=== PATIENT | female | born 1960 | race Caucasian/White ===

== ENCOUNTER 2020-03-22 19:31 | Inpatient (IN) ==
[2020-03-22] MEDS ORDERED: ACETAMINOPHEN 500 MG TAB PO STA (19:59)
[2020-03-22] MEDS ORDERED: SODIUM CHLORIDE 0.9% 1000ML 1,000 ML IV SCH (20:00)
[2020-03-22 20:31] LABS: Basophils # (auto) 0.01 K/uL (0-0.2); Basophils % (auto) 0.1 %; Hematocrit (blood only) 46.9 % (37-47); Hemoglobin 15.8 g/dL (12.0-16.0); Immature Granulocytes # (auto) 0.04 K/uL (0.00-0.02); Immature Granulocytes % (auto) 0.5 %; Lymphocytes # (auto) 0.88 K/uL (1.2-3.4); Lymphocytes % (auto) 10.9 %; Mean Corpuscular Hemoglobin 29.8 pg (25-34); Mean Corpuscular Hgb Conc 33.7 g/dL (32-36); Mean Corpuscular Volume 88.3 fL (80-100); Mean Platelet Volume 9.6 fL (7.4-10.4); Monocytes # (auto) 0.77 K/uL (0.11-0.59); Monocytes % (auto) 9.5 %; Neutrophils # (auto) 6.41 K/uL (1.4-6.5); Platelet Count 206 K/uL (130-400); RDW Coefficient of Variation 12.8 % (11.5-14.5); RDW Standard Deviation 41.5 fL (36.4-46.3); Red Blood Count 5.31 M/uL (4.2-5.4); White Blood Count 8.11 K/uL (4.8-10.8)
[2020-03-22 20:49] LABS: Albumin Level 3.2 gm/dl (3.4-5.0); BUN Creatinine Ratio 17.5 (10-20); Calcium 8.8 mg/dl (8.5-10.1); Creatinine Clr Calc Pharmacy 87.6 ml/min; Est GFR (Non-African American) 84.5; Potassium 3.5 mmol/L (3.5-5.1)
[2020-03-22 20:52] LABS: Albumin Globulin Ratio 0.7 (0.9-2); Bilirubin,Total 0.5 mg/dl (0.2-1); Globulin 4.8 gm/dl (2.5-4.0)
--- NOTE | 2020-03-22 21:11 | XRay Report ---
XR chest 1V portable CLINICAL HISTORY: Fever. COMPARISON STUDY: No previous studies for comparison. FINDINGS: This study is mildly compromised by motion artifact. The right lung is clear. There is mild opacity within the lateral and basilar aspects of the left lung. No pneumothorax is noted. There is an equivocal small left pleural effusion. Cardiac size is normal. Mediastinal contours are unremarkab le. There is no evidence for pulmonary edema. Patient is mildly rotated. IMPRESSION: Mild nonspecific hazy opacity within the lateral and basilar aspects of the left lung. P ossible trace left pleural effusion. ACT 112: Negative or not required by law. Electronically signed by: Parker Benites M.D. 03/22/2020 9:10 PM
[2020-03-22 21:32] LABS: Influenza A virus by PCR Neg for Influ A (Neg); Influenza B virus by PCR Neg for Influ B (Neg)
[2020-03-22] MEDS ORDERED: SODIUM CHLORIDE 0.9% 1000ML 1,000 ML IV ONE (21:48)
[2020-03-22] MEDS ORDERED: cefTRIAXone SODIUM 2,000 MG/70 ML BAG IV STA (21:50)
[2020-03-22] MEDS ORDERED: XOPENEX/ATROVENT 1.25mg/0.5MG NEB COMBO NEB STA (22:43)
[2020-03-22] MEDS ORDERED: LEVALBUTEROL 1.25MG/0.5ML NEB INH STA (22:44)
[2020-03-22] MEDS ORDERED: IPRATROPIUM BROMIDE NEB SOLN 0.02% 2.5 ML VIAL INH STA (22:44)
[2020-03-22 23:05] LABS: Partial Thromboplastin Ratio 1.1; Partial Thromboplastin Time 31.5 Seconds (21.0-31.0)
[2020-03-22 23:08] LABS: D Dimer 650 ug/L FEU (0-500)
[2020-03-22 23:23] LABS: Allen Test POS (Pos); Base Excess ABG -1.7 mEq/L (-9-1.8); HCO3 ABG 22 mmol/L (19-24); Oxygen Saturation ABG 96.3 % (90-95); PCO2 ABG 33 mmHg (35-46); PO2 ABG 79 mmHg (80-95); pH ABG 7.44 (7.35-7.45)
[2020-03-22] MEDS ORDERED: DOXYCYCLINE HYCLATE 100 MG in DEXTROSE 5% 100 ML IV STA (23:24)
[2020-03-22 23:31] LABS: Magnesium 2.1 mg/dl (1.8-2.4); Thyroid Stimulating Hormone 0.864 uIu/ml (0.300-4.500)
--- NOTE | 2020-03-22 23:40 | History & Physical Report ---
Date of Service March 22, 2020 Assessment & Plan (1) Acute hypoxemic respiratory failure: Secondary to CAP atypical pneumonia given dry cough/marked constitutional symptoms symptoms Rule out COVID Sepsis secondary to above Hypertension Possibly chronic given cardiomegaly on CT imaging Hyperglycemia rule out DM Medical telemetry Supplemental O2 CS, Doxycycline Nebs RTC Isolation precautions until COVID ruled out Initiate lisinopril if with persistent BP elevation Check hemoglobin A1c DVT prophylaxis. Lovenox subcu Full code Text document was generated using [employer] voice recognition software. It may contain grammatical or spelling errors. Kindly contact undersigned for clarification of any documentation item in question. History of Present Illness Chief Complaint: Fever, cough, shortness of breath Primary Care Provider: NO PCP History obtained from patient, family, and records. No significant medical history. Patient has not been feeling well since last week. Fever at home, dry cough, pleuritic chest pain with shortness of breath associated with generalized weakness/fatigue/body aches. No recent out-of-town travel. 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 At the ER, O2 sats noted to be 80s on room air. Patient received Ceftriaxone for sepsis. Medical History as above Surgical History : Cholecystectomy, appendectomy Family History : Heart disease, diabetes, stroke Personal/Social history : Non-smoker, no EtOH intake, motel housekeeping employee Allergies Allergy/AdvReac Type Severity Reaction Status Date / Time No Known Drug Allergies Allergy Unknown Verified 03/22/20 20:37 Home Medications Home Medications Medication Instructions Recorded Confirmed Type No Known Home Medications 03/22/20 03/22/20 History Past Med/Surg History Medical History (Updated 03/23/20 @ 06:03 by Td Wyatt MD) Obesity Surgical History S/P cholecystectomy Social History Preferred Language: Lithuanian Communication Ability: Effective Vascular Neurologist Required: No Beliefs That Will Affect Care: None Current Living Situation: Spouse Other Information That Helps Us Care for You: No Feels Safe at Home: Yes Safety Concerns: Feels Safe At This Time Smoking Status: Never smoker Hx Alcohol Use: Yes Alcohol type: beer Hx Substance Use: No Review of Systems Review of Systems: As per HPI, all 10 systems reviewed, all other ROS negative Physical Exam Physical Exam: GENERAL: Comfortable, pleasant, minimal respiratory distress, obese SKIN: Normal color, warm HEENT: [place] palpebral conjunctivae, no ptosis, dry buccal mucosa, nasal cannula in place NECK : Supple, short neck, no tenderness CHEST : Decreased breath sounds, occasional expiratory wheeze, no tenderness HEART : RRR, no obvious murmurs ABDOMEN: Some distention, nontender EXTREMITIES : Minimal LE swelling, no LE tenderness, no other conspicuous deformities noted NEUROLOGIC : Coherent, no facial asymmetry, no other gross focality Results & Data Results & Data ([facility]) Vital Signs (Past 12 Hours) Vital Signs Temp Pulse Pulse Resp BP Pulse Ox 03/22/20 23:14 96 H 18 94 03/22/20 22:31 37.9 C H 98 H 23 93 03/22/20 22:30 98 H 24 143/79 H 93 03/22/20 22:01 104 H 20 93 03/22/20 22:00 102 H 24 154/74 H 94 03/22/20 21:31 105 H 25 H 93 03/22/20 21:30 105 H 24 150/70 H 93 03/22/20 21:16 38.9 C H 03/22/20 21:15 93 03/22/20 21:14 87 L 03/22/20 21:01 114 H 29 H 92 03/22/20 21:00 116 H 19 169/95 H 92 03/22/20 20:41 123 H 25 H 156/83 H 91 03/22/20 20:30 123 H 29 H 03/22/20 20:23 123 H 28 H 90 03/22/20 20:00 128 H 28 H 161/90 H 92 03/22/20 19:40 39.0 C H 137 H 24 167/103 H 91 Laboratory Results Laboratory Results WBC 8.11 K/uL (4.8-10.8) 03/22/20 20:13 RBC 5.31 M/uL (4.2-5.4) 03/22/20 20:13 Hgb 15.8 g/dL (12.0-16.0) 03/22/20 20:13 Hct 46.9 % (37-47) 03/22/20 20:13 MCV 88.3 fL (80-100) 03/22/20 20:13 MCH 29.8 pg (25-34) 03/22/20 20:13 MCHC 33.7 g/dL (32-36) 03/22/20 20:13 RDW Std Deviation 41.5 fL (36.4-46.3) 03/22/20 20:13 RDW Coeff of Mahesh 12.8 % (11.5-14.5) 03/22/20 20:13 Plt Count 206 K/uL (130-400) 03/22/20 20:13 MPV 9.6 fL (7.4-10.4) 03/22/20 20:13 Immature Gran % (Auto) 0.5 % 03/22/20 20:13 Neut % (Auto) 79.0 % 03/22/20 20:13 Lymph % (Auto) 10.9 % 03/22/20 20:13 [place] % (Auto) 9.5 % 03/22/20 20:13 Eos % (Auto) 0.0 % 03/22/20 20:13 Baso % (Auto) 0.1 % 03/22/20 20:13 Immature Gran # (Auto) 0.04 K/uL (0.00-0.02) H 03/22/20 20:13 Neut # (Auto) 6.41 K/uL (1.4-6.5) 03/22/20 20:13 Lymph # (Auto) 0.88 K/uL (1.2-3.4) L 03/22/20 20:13 [place] # (Auto) 0.77 K/uL (0.11-0.59) H 03/22/20 20:13 Eos # (Auto) 0.00 K/uL (0-0.5) 03/22/20 20:13 Baso # (Auto) 0.01 K/uL (0-0.2) 03/22/20 20:13 APTT 31.5 Seconds (21.0-31.0) H 03/22/20 20:13 PTT Ratio 1.1 03/22/20 20:13 D-Dimer 650 ug/L FEU (0-500) H* 03/22/20 20:13 ABG pH 7.44 (7.35-7.45) 03/22/20 23:11 ABG pCO2 33 mmHg (35-46) L 03/22/20 23:11 ABG pO2 79 mmHg (80-95) L 03/22/20 23:11 ABG HCO3 22 mmol/L (19-24) 03/22/20 23:11 ABG O2 Saturation 96.3 % (90-95) H 03/22/20 23:11 ABG Base Excess -1.7 mEq/L (-9-1.8) 03/22/20 23:11 Javi Test POS (Pos) 03/22/20 23:11 Barometric Pressure 734.7 mm/Hg 03/22/20 23:11 Oxygen Given 2L 03/22/20 23:11 Sodium 135 mmol/L (136-145) L 03/22/20 20:13 Potassium 3.5 mmol/L (3.5-5.1) 03/22/20 20:13 Chloride 101 mmol/L (98-107) 03/22/20 20:13 Carbon Dioxide 26 mmol/L (21-32) 03/22/20 20:13 Anion Gap 8.0 (3-11) 03/22/20 20:13 BUN 13 mg/dl (7-18) 03/22/20 20:13 Creatinine 0.77 mg/dl (0.6-1.2) 03/22/20 20:13 Est Cr Clr Drug Dosing 87.6 ml/min 03/22/20 20:13 Est GFR ( Amer) 98.0 03/22/20 20:13 Est GFR (Non-Af Amer) 84.5 03/22/20 20:13 BUN/Creatinine Ratio 17.5 (10-20) 03/22/20 20:13 Glucose 125 mg/dl (70-99) H 03/22/20 20:13 Lactate 0.8 mmol/L (0.4-2.0) 03/22/20 20:30 Calcium 8.8 mg/dl (8.5-10.1) 03/22/20 20:13 Magnesium 2.1 mg/dl (1.8-2.4) 03/22/20 20:13 Total Bilirubin 0.5 mg/dl (0.2-1) 03/22/20 20:13 AST 37 U/L (15-37) 03/22/20 20:13 ALT 45 U/L (12-78) 03/22/20 20:13 Alkaline Phosphatase 118 U/L (45-117) H 03/22/20 20:13 Total Protein 8.0 gm/dl (6.4-8.2) 03/22/20 20:13 Albumin 3.2 gm/dl (3.4-5.0) L 03/22/20 20:13 Globulin 4.8 gm/dl (2.5-4.0) H 03/22/20 20:13 Albumin/Globulin Ratio 0.7 (0.9-2) L 03/22/20 20:13 TSH 0.864 uIu/ml (0.300-4.500) 03/22/20 20:13 Influenza Type A (PCR) Neg for Influ A (Neg) 03/22/20 20:15 Influenza Type B (PCR) Neg for Influ B (Neg) 03/22/20 20:[address] chest initial read: No central pulmonary embolus. Mediastinal and hilar adenopathy. Bibasilar consolidation. Mild patchy groundglass opacities right lung. Cardiomegaly. Small hiatal hernia. EKG pending
--- NOTE | 2020-03-23 00:59 | Emergency Department Note ---
History of Present Illness General Chief complaint: Illness Stated complaint: TIRED, VOMITING Source: patient Mode of arrival: ambulatory Limitations: no limitations History of Present Illness Provider complaint: fatigue, illness Onset (ago): week(s) 1 This patient is a 59-year-old female who presents emergency department with complaints of generalized illness and fatigue. Patient states she has not felt well for the better part of a week. She has taken Tylenol periodically but not today. She complains of a diminished appetite. Patient does complain of shortness of breath and cough. Patient denies any recent travel. She denies any abdominal pain. She states she has not seen a doctor since 2007 because "if you do not go you do not know." Patient does work at the [employer] that is currently housing many homeless people secondary to the COVID pandemic and closed homeless shelters. Incidentally the patient's has checked and at the same time for evaluation. Home Medications Home Medications Medication Instructions Recorded Confirmed Type No Known Home Medications 03/22/20 03/22/20 History Allergies Allergy/AdvReac Type Severity Reaction Status Date / Time No Known Drug Allergies Allergy Unknown Verified 03/22/20 20:37 Past Med/Surg History Medical History (Updated 03/23/20 @ 01:16 by Rosalie Stafford MD) Obesity Surgical History S/P cholecystectomy Social History Feels Safe at Home: Yes Smoking Status: Never smoker Review of Systems See HPI for pertinent positives & negatives. and A total of 10 systems reviewed and were otherwise negative Physical Exam Vital Signs Vital Signs - 24 hr 03/22/20 19:40 03/22/20 20:00 03/22/20 20:23 Temperature 39.0 C H Temperature Source Oral Pulse Rate 137 H 128 H 123 H Pulse Rate [Right Radial] Pulse Rate from SpO2 Sensor 127 H 124 H Respiratory Rate 24 28 H 28 H Respiratory Effort / Characteristics Blood Pressure 167/103 H 161/90 H Blood Pressure Mean 124 111 Blood Pressure Position Sitting Pulse Oximetry 91 92 90 Oxygen Delivery Method Room Air Room Air Room Air Oxygen Flow Rate Sepsis Recent Fever Within 48 Hours Yes Sepsis New/Unexplained Change in Mental Status No Sepsis Action Taken by Nursing No Action Required 03/22/20 20:30 03/22/20 20:41 03/22/20 21:00 Temperature Temperature Source Pulse Rate 123 H 123 H 116 H Pulse Rate [Right Radial] Pulse Rate from SpO2 Sensor 122 H 116 H Respiratory Rate 29 H 25 H 19 Respiratory Effort / Characteristics Blood Pressure 156/83 H 169/95 H Blood Pressure Mean 126 119 Blood Pressure Position Pulse Oximetry 91 92 Oxygen Delivery Method Room Air Room Air Oxygen Flow Rate Sepsis Recent Fever Within 48 Hours Sepsis New/Unexplained Change in Mental Status Sepsis Action Taken by Nursing 03/22/20 21:01 03/22/20 21:14 03/22/20 21:15 Temperature Temperature Source Pulse Rate 114 H Pulse Rate [Right Radial] Pulse Rate from SpO2 Sensor 114 H Respiratory Rate 29 H Respiratory Effort / Characteristics Blood Pressure Blood Pressure Mean Blood Pressure Position Pulse Oximetry 92 87 L 93 Oxygen Delivery Method Room Air Nasal Cannula Oxygen Flow Rate 2 Sepsis Recent Fever Within 48 Hours Sepsis New/Unexplained Change in Mental Status Sepsis Action Taken by Nursing 03/22/20 21:16 03/22/20 21:30 03/22/20 21:31 Temperature 38.9 C H Temperature Source Oral Pulse Rate 105 H 105 H Pulse Rate [Right Radial] Pulse Rate from SpO2 Sensor 106 H 105 H Respiratory Rate 24 25 H Respiratory Effort / Characteristics Blood Pressure 150/70 H Blood Pressure Mean 96 Blood Pressure Position Pulse Oximetry 93 93 Oxygen Delivery Method Oxygen Flow Rate Sepsis Recent Fever Within 48 Hours Sepsis New/Unexplained Change in Mental Status Sepsis Action Taken by Nursing 03/22/20 22:00 03/22/20 22:01 03/22/20 22:30 Temperature Temperature Source Pulse Rate 102 H 104 H 98 H Pulse Rate [Right Radial] Pulse Rate from SpO2 Sensor 103 H 104 H 99 H Respiratory Rate 24 20 24 Respiratory Effort / Characteristics Blood Pressure 154/74 H 143/79 H Blood Pressure Mean 106 109 Blood Pressure Position Pulse Oximetry 94 93 93 Oxygen Delivery Method Oxygen Flow Rate Sepsis Recent Fever Within 48 Hours Sepsis New/Unexplained Change in Mental Status Sepsis Action Taken by Nursing 03/22/20 22:31 03/22/20 23:00 03/22/20 23:01 Temperature 37.9 C H Temperature Source Pulse Rate 98 H 91 H 93 H Pulse Rate [Right Radial] Pulse Rate from SpO2 Sensor 98 H 91 H 93 H Respiratory Rate 23 22 22 Respiratory Effort / Characteristics Blood Pressure 120/76 Blood Pressure Mean 90 Blood Pressure Position Pulse Oximetry 93 94 94 Oxygen Delivery Method Nasal Cannula Oxygen Flow Rate 2 Sepsis Recent Fever Within 48 Hours Sepsis New/Unexplained Change in Mental Status Sepsis Action Taken by Nursing 03/22/20 23:14 03/22/20 23:30 03/22/20 23:31 Temperature Temperature Source Pulse Rate 94 H 94 H Pulse Rate [Right Radial] 96 H Pulse Rate from SpO2 Sensor 94 H 94 H Respiratory Rate 18 22 22 Respiratory Effort / Characteristics Non-Labored Spontaneous Blood Pressure 138/82 Blood Pressure Mean 104 Blood Pressure Position Pulse Oximetry 94 92 93 Oxygen Delivery Method Nasal Cannula Oxygen Flow Rate 2 Sepsis Recent Fever Within 48 Hours Sepsis New/Unexplained Change in Mental Status Sepsis Action Taken by Nursing 03/23/20 00:00 03/23/20 00:01 03/23/20 00:30 Temperature Temperature Source Pulse Rate 90 96 H 88 Pulse Rate [Right Radial] Pulse Rate from SpO2 Sensor 91 H 96 H 89 Respiratory Rate 21 23 22 Respiratory Effort / Characteristics Blood Pressure 140/80 131/79 Blood Pressure Mean 95 86 Blood Pressure Position Pulse Oximetry 93 93 93 Oxygen Delivery Method Nasal Cannula Oxygen Flow Rate 3 Sepsis Recent Fever Within 48 Hours Sepsis New/Unexplained Change in Mental Status Sepsis Action Taken by Nursing 03/23/20 00:31 03/23/20 00:52 Temperature Temperature Source Pulse Rate 90 87 Pulse Rate [Right Radial] Pulse Rate from SpO2 Sensor 90 Respiratory Rate 18 18 Respiratory Effort / Characteristics Blood Pressure 131/79 Blood Pressure Mean Blood Pressure Position Pulse Oximetry 93 93 Oxygen Delivery Method Nasal Cannula Oxygen Flow Rate 2 Sepsis Recent Fever Within 48 Hours Sepsis New/Unexplained Change in Mental Status Sepsis Action Taken by Nursing Vital signs reviewed. Febrile and tachycardic. General: Ill-appearing 59 yo female, in no significant distress. HEENT: No scleral icterus, PERRLA, neck supple. Atraumatic. Cardiovascular: Tachycardic and regular, no extra sounds Pulmonary: Crackles to the bases bilaterally, normal work of breathing. Abdomen: Soft, nontender, nondistended, positive bowel sounds. Musculoskeletal: Atraumatic, no peripheral edema. Neurologic: Patient awake alert and oriented x 3 Skin: Warm, dry, no rash Course Administered Medications Doxycycline Hyclate 100 mg/ (Dextrose) 110 mls @ 50 mls/hr IV NOW STA Stop: 03/23/20 01:35 Last Admin: 03/23/20 00:05 Dose: 50 mls/hr Documented by: [id number] Discontinued Medications Acetaminophen (Tylenol) 1,000 mg PO ONE STA Stop: 03/22/20 20:00 Last Admin: 03/22/20 20:38 Dose: 1,000 mg Documented by: [id number] Sodium Chloride (Nss 1000ml) 1,000 mls @ 999 mls/hr IV .Q1H1M BENNIE Stop: 03/22/20 21:00 Last Infusion: 03/22/20 22:33 Dose: 0 mls/hr Documented by: [id number] Admin: 03/22/20 20:35 Dose: 999 mls/hr Documented by: [id number] Sodium Chloride (Nss 1000ml) 1,000 mls @ 999 mls/hr IV .Q1H1M ONE Stop: 03/22/20 22:48 Last Infusion: 03/22/20 23:47 Dose: 0 mls/hr Documented by: [id number] Admin: 03/22/20 22:30 Dose: 999 mls/hr Documented by: [id number] Ceftriaxone Sodium (Rocephin) 2,000 mg in 70 mls @ 140 mls/hr IV NOW STA Stop: 03/22/20 22:19 Last Infusion: 03/22/20 23:47 Dose: 0 mls/hr Documented by: [id number] Admin: 03/22/20 22:30 Dose: 140 mls/hr Documented by: [id number] Ipratropium [place] (Atrovent 0.02% 0.5mg/2.5ml) 0.5 mg INH NOW STA Stop: 03/22/20 22:45 Last Admin: 03/22/20 23:12 Dose: 0.5 mg Documented by: [id number] Levalbuterol HCl (Xopenex 1.25mg/0.5ml Neb) 1.25 mg INH NOW STA Stop: 03/22/20 22:45 Last Admin: 03/22/20 23:12 Dose: 1.25 mg Documented by: [id number] Critical Care Time Critical Care Time: Yes I have personally spent greater than 40 minutes of critical care time in the direct management of this patient. This includes bedside care, interpretation of diagnostic studies, and testing, discussion with consultants, patient, and family members, and other required patient management activities. This 40 minutes is in excess of all separately billable procedures. Medical Decision Making Differential Diagnosis Differential diagnosis: Etiologies such as viral syndrome, otitis, pharyngitis, pneumonia, influenza, meningitis, urinary tract infection, septic arthritis, soft tissue infectious process, intra-abdominal process, sepsis, bacteremia, as well as others were entertained. Medical Records Attestation: I reviewed the patient's medical records. Home Medications Current Medication List: was personally reviewed by me (none) Laboratory Data Attestation: I reviewed the patient's lab results. Result diagrams: 03/22/20 20:13 03/22/20 20:13 Lab Results 03/22/20 03/22/20 03/22/20 Range/Units 20:13 20:13 20:13 WBC 8.11 (4.8-10.8) K/uL RBC 5.31 (4.2-5.4) M/uL Hgb 15.8 (12.0-16.0) g/dL Hct 46.9 (37-47) % MCV 88.3 (80-100) fL MCH 29.8 (25-34) pg MCHC 33.7 (32-36) g/dL RDW Std Deviation 41.5 (36.4-46.3) fL RDW Coeff of Mahesh 12.8 (11.5-14.5) % Plt Count 206 (130-400) K/uL MPV 9.6 (7.4-10.4) fL Immature Gran % (Auto) 0.5 % Neut % (Auto) 79.0 % Lymph % (Auto) 10.9 % Gilchrist % (Auto) 9.5 % Eos % (Auto) 0.0 % Baso % (Auto) 0.1 % Immature Gran # (Auto) 0.04 H (0.00-0.02) K/uL Neut # (Auto) 6.41 (1.4-6.5) K/uL Lymph # (Auto) 0.88 L (1.2-3.4) K/uL Gilchrist # (Auto) 0.77 H (0.11-0.59) K/uL Eos # (Auto) 0.00 (0-0.5) K/uL Baso # (Auto) 0.01 (0-0.2) K/uL APTT 31.5 H (21.0-31.0) Seconds PTT Ratio 1.1 D-Dimer 650 H* (0-500) ug/L FEU ABG pH (7.35-7.45) ABG pCO2 (35-46) mmHg ABG pO2 (80-95) mmHg ABG HCO3 (19-24) mmol/L ABG O2 Saturation (90-95) % ABG Base Excess (-9-1.8) mEq/L Javi Test (Pos) Barometric Pressure mm/Hg Oxygen Given Sodium 135 L (136-145) mmol/L Potassium 3.5 (3.5-5.1) mmol/L Chloride 101 (98-107) mmol/L Carbon Dioxide 26 (21-32) mmol/L Anion Gap 8.0 (3-11) BUN 13 (7-18) mg/dl Creatinine 0.77 (0.6-1.2) mg/dl Est Cr Clr Drug Dosing 87.6 ml/min Est GFR ( Amer) 98.0 Est GFR (Non-Af Amer) 84.5 BUN/Creatinine Ratio 17.5 (10-20) Glucose 125 H (70-99) mg/dl Lactate (0.4-2.0) mmol/L Calcium 8.8 (8.5-10.1) mg/dl Magnesium 2.1 (1.8-2.4) mg/dl Total Bilirubin 0.5 (0.2-1) mg/dl AST 37 (15-37) U/L ALT 45 (12-78) U/L Alkaline Phosphatase 118 H (45-117) U/L Total Protein 8.0 (6.4-8.2) gm/dl Albumin 3.2 L (3.4-5.0) gm/dl Globulin 4.8 H (2.5-4.0) gm/dl Albumin/Globulin Ratio 0.7 L (0.9-2) TSH 0.864 (0.300-4.500) uIu/ml Influenza Type A (PCR) (Neg) Influenza Type B (PCR) (Neg) SARS-CoV-2 RNA (RT-PCR) 03/22/20 03/22/20 03/22/20 Range/Units 20:15 20:15 20:30 WBC (4.8-10.8) K/uL RBC (4.2-5.4) M/uL Hgb (12.0-16.0) g/dL Hct (37-47) % MCV (80-100) fL MCH (25-34) pg MCHC (32-36) g/dL RDW Std Deviation (36.4-46.3) fL RDW Coeff of Mahesh (11.5-14.5) % Plt Count (130-400) K/uL MPV (7.4-10.4) fL Immature Gran % (Auto) % Neut % (Auto) % Lymph % (Auto) % Gilchrist % (Auto) % Eos % (Auto) % Baso % (Auto) % Immature Gran # (Auto) (0.00-0.02) K/uL Neut # (Auto) (1.4-6.5) K/uL Lymph # (Auto) (1.2-3.4) K/uL Gilchrist # (Auto) (0.11-0.59) K/uL Eos # (Auto) (0-0.5) K/uL Baso # (Auto) (0-0.2) K/uL APTT (21.0-31.0) Seconds PTT Ratio D-Dimer (0-500) ug/L FEU ABG pH (7.35-7.45) ABG pCO2 (35-46) mmHg ABG pO2 (80-95) mmHg ABG HCO3 (19-24) mmol/L ABG O2 Saturation (90-95) % ABG Base Excess (-9-1.8) mEq/L Javi Test (Pos) Barometric Pressure mm/Hg Oxygen Given Sodium (136-145) mmol/L Potassium (3.5-5.1) mmol/L Chloride (98-107) mmol/L Carbon Dioxide (21-32) mmol/L Anion Gap (3-11) BUN (7-18) mg/dl Creatinine (0.6-1.2) mg/dl Est Cr Clr Drug Dosing ml/min Est GFR ( Amer) Est GFR (Non-Af Amer) BUN/Creatinine Ratio (10-20) Glucose (70-99) mg/dl Lactate 0.8 (0.4-2.0) mmol/L Calcium (8.5-10.1) mg/dl Magnesium (1.8-2.4) mg/dl Total Bilirubin (0.2-1) mg/dl AST (15-37) U/L ALT (12-78) U/L Alkaline Phosphatase (45-117) U/L Total Protein (6.4-8.2) gm/dl Albumin (3.4-5.0) gm/dl Globulin (2.5-4.0) gm/dl Albumin/Globulin Ratio (0.9-2) TSH (0.300-4.500) uIu/ml Influenza Type A (PCR) Neg for Influ A (Neg) Influenza Type B (PCR) Neg for Influ B (Neg) SARS-CoV-2 RNA (RT-PCR) Cancelled 03/22/20 Range/Units 23:11 WBC (4.8-10.8) K/uL RBC (4.2-5.4) M/uL Hgb (12.0-16.0) g/dL Hct (37-47) % MCV (80-100) fL MCH (25-34) pg MCHC (32-36) g/dL RDW Std Deviation (36.4-46.3) fL RDW Coeff of Mahesh (11.5-14.5) % Plt Count (130-400) K/uL MPV (7.4-10.4) fL Immature Gran % (Auto) % Neut % (Auto) % Lymph % (Auto) % Gilchrist % (Auto) % Eos % (Auto) % Baso % (Auto) % Immature Gran # (Auto) (0.00-0.02) K/uL Neut # (Auto) (1.4-6.5) K/uL Lymph # (Auto) (1.2-3.4) K/uL [place]christ # (Auto) (0.11-0.59) K/uL Eos # (Auto) (0-0.5) K/uL Baso # (Auto) (0-0.2) K/uL APTT (21.0-31.0) Seconds PTT Ratio D-Dimer (0-500) ug/L FEU ABG pH 7.44 (7.35-7.45) ABG pCO2 33 L (35-46) mmHg ABG pO2 79 L (80-95) mmHg ABG HCO3 22 (19-24) mmol/L ABG O2 Saturation 96.3 H (90-95) % ABG Base Excess -1.7 (-9-1.8) mEq/L Javi Test POS (Pos) Barometric Pressure 734.7 mm/Hg Oxygen Given 2L Sodium (136-145) mmol/L Potassium (3.5-5.1) mmol/L Chloride (98-107) mmol/L Carbon Dioxide (21-32) mmol/L Anion Gap (3-11) BUN (7-18) mg/dl Creatinine (0.6-1.2) mg/dl Est Cr Clr Drug Dosing ml/min Est GFR ( Amer) Est GFR (Non-Af Amer) BUN/Creatinine Ratio (10-20) Glucose (70-99) mg/dl Lactate (0.4-2.0) mmol/L Calcium (8.5-10.1) mg/dl Magnesium (1.8-2.4) mg/dl Total Bilirubin (0.2-1) mg/dl AST (15-37) U/L ALT (12-78) U/L Alkaline Phosphatase (45-117) U/L Total Protein (6.4-8.2) gm/dl Albumin (3.4-5.0) gm/dl Globulin (2.5-4.0) gm/dl Albumin/Globulin Ratio (0.9-2) TSH (0.300-4.500) uIu/ml Influenza Type A (PCR) (Neg) Influenza Type B (PCR) (Neg) SARS-CoV-2 RNA (RT-PCR) Imaging Data Radiologist's Impression: XR chest 1V portable CLINICAL HISTORY: Fever. COMPARISON STUDY: No previous studies for comparison. FINDINGS: This study is mildly compromised by motion artifact. The right lung is clear. There is mild opacity within the lateral and basilar aspects of the left lung. No pneumothorax is noted. There is an equivocal small left pleural effusion. Cardiac size is normal. Mediastinal contours are unremarkable. There is no evidence for pulmonary edema. Patient is mildly rotated. IMPRESSION: Mild nonspecific hazy opacity within the lateral and basilar aspects of the left lung. Possible trace left pleural effusion. ACT 112: Negative or not required by law. Electronically signed by: Parker Benites M.D. 03/22/2020 9:10 PM Dictated: 03/22/202105 Transcribed: 03/22/202105 ECG Data Attestation: I personally reviewed and interpreted this ECG as follows: Indication: + tachycardia Rate (beats per minute): 126 Rhythm: + sinus tachycardia and + other (left atrial enlargement) ECG Intervals/blocks: + Normal QT ECG [place]: + Normal ECG ST segments: + T-wave inversions (Inferior) ECG Findings: no PACs and no PVCs Additional Comments: An order for cardiac monitoring was placed and the patient was found to be in a sinus tachycardia at 130 bpm. Blood Pressure Blood Pressure Findings: Normal blood pressure Blood Pressure Disposition: did not require urgent referral MDM Narrative This patient was evaluated and appeared to be in no significant distress. IV access was obtained and laboratory work was drawn. Patient was placed on the clinical nurse noted to be in a sinus tachycardia. She is also noted to be febrile. Patient was given 1000 mg of p.o. Tylenol, 2 L of IV normal saline solution. Chest x-ray was performed and reveals patchy infiltrates at the lateral and basilar aspect of the left lung. Blood cultures are pending. Lactic acid is within normal limits as is the WBC. Patient was given 2000 mg of IV ceftriaxone. Patient's heart rate and fever did improve. She did become hypoxic and required nasal cannula oxygen. Patient was informed of the findings. I do recommend hospitalization due to the hypoxia, fever and pulmonary infiltrates. COVID testing is pending. Patient's case was discussed with the hospitalist service who will evaluate the patient for further management. Impression & Plan Fever, Pneumonia, Hypoxia Discharge Plan Visit Data Chief Complaint: Illness Stated Complaint: TIRED, VOMITING ED Provider: Rosalie Stafford Discharge Problem: Fever, Pneumonia, Hypoxia Discharge Instructions Interventions: ED Discharge Assessment Last Done: 03/23/20 00:52 Forms Stand Alone Forms: [employer] Prescriptions Prescriptions: No Action No Known Home Medications RF: 0 Referrals Referrals: PCP,NO [Primary Care Provider] - Discharge Problem: Fever Qualifiers: Fever type: unspecified Qualified Code(s): R50.9 - Fever, unspecified Pneumonia Qualifiers: Pneumonia type: due to unspecified organism Laterality: left Lung location: unspecified part of lung Qualified Code(s): J18.9 - Pneumonia, unspecified [facility]
[2020-03-23] MEDS ORDERED: OPTIRAY 320 125ml IV PRN (01:34)
[2020-03-23] MEDS ORDERED: PROMETHAZINE HCL 12.5 MG in SODIUM CHLORIDE 0.9% 50 ML IV PRN (01:51)
[2020-03-23] MEDS ORDERED: POTASSIUM CHLORIDE 40 MEQ in SODIUM CHLORIDE 0.9% 1000ML 1,000 ML IV ONE (01:51)
[2020-03-23] MEDS: guaiFENesin 600 MG TABCR PO SCH ×3 (03:33→20:10)
[2020-03-23 04:00] LABS: Appearance Urine Clear (Clear); Bacteria Urine Automated Negative (Negative); Bilirubin Urine Negative (Negative); Blood Urine Negative (Negative); Color Urine Dark Yellow; Epithelial Cell Urine Auto 20-30 /lpf (0-5); Glucose Urine UA Negative (Negative); Ketones Urine 1+ (Negative); Leukocyte Esterase Urine Negative (Negative); Nitrite Urine Negative (Negative); Protein Urine 1+ (Negative); RBC Urine Automated 0-4 /hpf (0-4); Specific Gravity Urine > 1.045 (1.000-1.030); Urobilinogen Urine Negative (Negative)
[2020-03-23 05:50] LABS: Estimated Average Glucose 128 mg/dl; Hemoglobin A1C 6.1 % (4.5-5.6)
[2020-03-23] MEDS ORDERED: IPRATROPIUM BROMIDE NEB SOLN 0.02% 2.5 ML VIAL INH SCH (07:00)
[2020-03-23] MEDS ORDERED: LEVALBUTEROL 1.25MG/0.5ML NEB INH SCH (07:00)
[2020-03-23] MEDS ORDERED: XOPENEX/ATROVENT 1.25mg/0.5MG NEB COMBO NEB SCH (07:00)
[2020-03-23 07:06] LABS: Basophils # (auto) 0.01 K/uL (0-0.2); Basophils % (auto) 0.2 %; Eosinophils # (auto) 0.01 K/uL (0-0.5); Eosinophils % (auto) 0.2 %; Hematocrit (blood only) 42.7 % (37-47); Hemoglobin 14.3 g/dL (12.0-16.0); Immature Granulocytes # (auto) 0.04 K/uL (0.00-0.02); Immature Granulocytes % (auto) 0.7 %; Lymphocytes % (auto) 20.2 %; Mean Corpuscular Hemoglobin 29.9 pg (25-34); Mean Corpuscular Hgb Conc 33.5 g/dL (32-36); Mean Corpuscular Volume 89.1 fL (80-100); Mean Platelet Volume 9.5 fL (7.4-10.4); Monocytes # (auto) 0.67 K/uL (0.11-0.59); Monocytes % (auto) 11.3 %; Neutrophils % (auto) 67.4 %; Platelet Count 199 K/uL (130-400); RDW Coefficient of Variation 13.1 % (11.5-14.5); Red Blood Count 4.79 M/uL (4.2-5.4); White Blood Count 5.93 K/uL (4.8-10.8)
[2020-03-23 07:10] LABS: Prothrombin Time 10.9 Seconds (9.0-12.0)
[2020-03-23 07:22] LABS: Calcium 7.8 mg/dl (8.5-10.1); Creatinine Clr Calc Pharmacy 133.7 ml/min; Est GFR (Non-African American) 105.3; Potassium 3.4 mmol/L (3.5-5.1)
--- NOTE | 2020-03-23 07:54 | CT Scan Report ---
CT angio chest PE protocol CT DOSE: 510.62 mGycm HISTORY: 59 years-old Female with PE. Acute cough with fever and shortness of breath TECHNIQUE: Multiple CTA images of the chest were obtained after the intravenous administration of 112 ml Optiray 320. Coronal and sagittal MIPS were obtained from the axial data set and were submitted for review. All measurements were obtained according to NASCET criteria. A dose lowering technique w as utilized adhering to the principles of ALARA. COMPARISON: Chest radiograph of same day FINDINGS: CTA: The heart is mildly enlarged. No pericardial effusion. No thoracic aortic aneurysm or dissection. Pat ency of the imaged great vessels. The pulmonary arterial tree is opacified to level of the proximal s ubsegmental branches. No filling defects identified to suggest pulmonary thromboembolic disease. Ther e is minimal respiratory motion artifact. CT CHEST: Unremarkable thyroid. Prominent paratracheal, AP window, subcarinal and hilar lymph nodes measure up to 9 mm, likely reactive. No pneumothorax or pleural effusion. No overt pulmonary edema. Left greater than right bibasilar predominant peripheral consolidative and groundglass opacities are present. The re are no suspicious pulmonary nodules or masses. The central airways appear patent. Mild wall thickening of the distal esophagus with tiny hiatal hernia. Possible hepatic steatosis. Sof t tissues are unremarkable. Degenerative changes of the spine and shoulders. Bones appear intact. IMPRESSION: 1. No evidence of pulmonary thromboembolic disease. 2. Left greater than right bibasilar predominant peripheral consolidative and groundglass opacities a re suggestive of infectious or inflammatory pneumonitis. This pattern of disease can be seen specific ally in cases of viral pneumonia. Close follow-up is recommended. 3. Prominent mediastinal lymph nodes, likely reactive. 4. Tiny hiatal hernia. ACT 112: Negative or not required by law. The above report was generated using voice recognition software. It may contain grammatical, syntax o r spelling errors. Electronically signed by: Vijay Costa M.D. 03/23/2020 7:53 AM
[2020-03-23] MEDS ORDERED: cefTRIAXone SODIUM 1,000 MG in DEXTROSE 5% 50 ML IV SCH (08:15)
[2020-03-23] MEDS ORDERED: IPRATROPIUM BROMIDE NEB SOLN 0.02% 2.5 ML VIAL INH PRN (08:30)
[2020-03-23] MEDS ORDERED: LEVALBUTEROL 1.25MG/0.5ML NEB INH PRN (08:30)
[2020-03-23] MEDS ORDERED: DOXYCYCLINE HYCLATE 100 MG CAP PO SCH ×2 (09:00→20:00)
[2020-03-23] MEDS ORDERED: ENOXAPARIN INJ 40 MG/0.4 ML SYR SQ SCH (09:00)
[2020-03-23 12:22] LABS: D Dimer 860 ug/L FEU (0-500)
[2020-03-23 12:39] LABS: C Reactive Protein 9.12 mg/dl (0-0.29); Ferritin 459.6 ng/ml (8-388)
--- NOTE | 2020-03-23 13:13 | Infectious Disease Consult ---
Date of Consultation March 23, 2020 Supervising Physician Co-Signing Physician Notes unable to place A/P in chart as other users are in chart as well. A/P 1. b/l PNA -suspect related to COVID-19 would continue supportive care as outlined by pulnathan, no plan for hydroxychloroquine per pulm, janae added for potential atypical coverage. continue supportive care. agree with d/c on home isolation if remains stable. History of Present Illness Attending Physician: Pedro Arvizu MD pt admitted with c/o cough, sob, fever. tmax 39, currently afebrile. wbc 5, cta in ER b/l infiltrates l>r. she had negative flu swab and + COVID testing, she is now in airborne isolation. she was started on emperic ctx, tolerating well. O2 sats down to 80's in ER, now 91% on RA. Blood cultures pending, UA negative. d dimer elevated at 650. ID consulted for + COVID test Allergies Allergy/AdvReac Type Severity Reaction Status Date / Time No Known Drug Allergies Allergy Unknown Verified 03/22/20 20:37 Home Medications Home Medications Medication Instructions Recorded Confirmed Type No Known Home Medications 03/22/20 03/22/20 History Patient History Medical History Obesity Surgical History S/P cholecystectomy Social History Preferred Language: Maori Communication Ability: Effective Accounts Receivable Specialist Required: No Beliefs That Will Affect Care: None Current Living Situation: Spouse Other Information That Helps Us Care for You: No Feels Safe at Home: Yes Safety Concerns: Feels Safe At This Time Smoking Status: Never smoker Hx Alcohol Use: Yes Alcohol type: beer Hx Substance Use: No Review of Systems Review of Systems: per h&p Results & Data ([facility]) Vital Signs (Past 12 Hours) Vital Signs Temp Pulse Pulse Resp BP BP Pulse Ox 03/23/20 12:46 100 H 03/23/20 11:24 37.5 C 96 H 20 168/105 H 91 03/23/20 11:12 37.5 C 95 H 20 153/81 H 94 03/23/20 08:38 37.1 C 87 18 151/68 H 92 03/23/20 07:11 84 17 91 03/23/20 07:00 90 03/23/20 06:43 152/89 H 03/23/20 05:54 36.9 C 85 18 151/87 H 93 03/23/20 01:46 85 03/23/20 01:43 37.2 C 90 18 157/90 H 90 PG Care Time/CCT Total # of Minutes Spent Total Time Spent with Patient: Total time spent is greater than 50% in coordination of care (as documented) at patient's floor/unit and/or counseling patient: Coding Level of Care Code 36864 Inpt Consult Level 2
--- NOTE | 2020-03-23 13:17 | Electrocardiogram Report ---
Test Reason : Blood Pressure : / mmHG Vent. Rate : 126 BPM Atrial Rate : 126 BPM P-R Int : 150 ms QRS Dur : 078 ms QT Int : 300 ms P-R-T Axes : 044 013 001 degrees QTc Int : 434 ms Sinus tachycardia Possible Left atrial enlargement Poor R wave progression, consider anterior WI vs. lead placement vs. LVH Abnormal ECG No previous ECGs available Confirmed by Carlos Clarke ([id number]) on 03/23/2020 1:17:07 PM Referred By: REFERRED SELF Confirmed By:Carlos Clarke
--- NOTE | 2020-03-23 13:26 | Pulmonary Consultation ---
Date of Consultation March 23, 2020 Assessment & Plan (1) Acute hypoxemic respiratory failure: CT chest 03/23/2020 personally reviewed patient has bilateral lower lobe consolidative changes more on the left side with minimal peripheral groundglass opacities. Insignificant mediastinal adenopathy No evidence of pulmonary embolus --Acute hypoxic respiratory failure Secondary to bilateral lower lobe infiltrates on top of Covid-19 positive Influenza negative, +ve lymphopenia Continue with O2 supplementation to keep saturation between 90 to 92%. LDH: 306, CRP: 9.12, ESR: 52, procalcitonin 0.05, ferritin 460 EKG: Normal sinus rhythm, normal axis, no ST-T wave changes. QTc 437. --Probable YURI Morbid obesity, thick neck Patient will benefit from outpatient polysomnography BiPAP nightly --Morbid obesity Plan: At the time of examination patient was saturating 91% on room air at rest. Try to keep the oxygen saturation around 90 to 92%. O2 supplementation as needed. Patient is in no acute respiratory distress. The algorithm to follow for hypoxia would be nasal cannula followed by high flow. Advised patient to sleep prone whenever she is lying down. For the dense consolidation that the patient has bilateral lower lobes although the procalcitonin is negative continue with doxycycline. I will add hydroxychloroquine to be given for 5 days. Monitor QTC. Keep potassium greater than 4, magnesium greater than 2, phosphorus greater than 3. Incentive spirometry. Patient has never been on any blood pressure pills at home. Would recommend against starting JULIA inhibitor in a patient was Covid-19 positive unless there is a documented benefit of using it. Recommend alternative medication for blood pressure management. Patient looks comfortable breathing 15 breaths/min saturating 90% on room air. If the respiratory rate and saturation stays like this for more than 24 hours, discharging patient could be thought of with self-isolation. I had a discussion with the patient regarding goals of care in case she needed intubation/ventilator and chest compressions. Patient says she would not want that even if she would not make it without those interventions. I will follow the patient peripherally. Please call for recommendation on management of the patient. Please note the above document was generated using voice recognition software. It may contain grammatical, syntax or spelling errors. (2) Pneumonia: Laterality: left Lung location: unspecified part of lung Pneumonia type: due to unspecified organism Qualified Code(s): J18.9 - Pneumonia, unspecified organism (3) Obesity: History of Present Illness Attending Physician: Pedro Arvizu MD History of Present Illness 59-year-old female with no significant past medical history presents to the hospital with complaints of not feeling well since last 7 to 10 days associated with generalized malaise, dry cough with generalized weakness. Patient denies any chest pain, no headache, no blurry vision, no nausea or vomiting. No dysuria, no diarrhea prior to presentation. No anosmia, no ageusia. Denies any sore throat. No odynophagia. No recent travel history. No weight loss, no night sweats. Patient did say that she had possible Covid-19 sick contact at the local [place] where she there were homeless people. In the ER patient saturation was found to be in the mid 80s. At the time of examination today patient saturation was 90-91% on room air at rest with respiratory rate around 15. Patient denied any discomfort. She did look scared. Allergies Allergy/AdvReac Type Severity Reaction Status Date / Time No Known Drug Allergies Allergy Unknown Verified 03/22/20 20:37 Home Medications Home Medications Medication Instructions Recorded Confirmed Type No Known Home Medications 03/22/20 03/22/20 History Patient History Medical History (Updated 03/23/20 @ 06:03 by Td Wyatt MD) Obesity Surgical History S/P cholecystectomy Social History Preferred Language: Romansh Communication Ability: Effective Insurance Salesperson Required: No Beliefs That Will Affect Care: None Current Living Situation: Spouse Other Information That Helps Us Care for You: No Feels Safe at Home: Yes Safety Concerns: Feels Safe At This Time Smoking Status: Never smoker Hx Alcohol Use: Yes Alcohol type: beer Hx Substance Use: No Review of Systems Review of Systems: All systems reviewed & are unremarkable except as noted in HPI & below Physical Exam Physical Exam: Constitutional: No acute distress HEENT: EOMI, PERRLA, poor dentition, thick neck Respiratory system: Decreased air entry bilaterally, positive bilateral lower lobe crackles, no wheeze, no rhonchi CVS: S1-S2 positive, no murmurs or gallops Abdomen: Soft, nontender, nondistended, positive bowel sounds x4, obese Extremities: +2 pulses bilaterally radialis/ dorsalis pedis, no cyanosis, no edema Neuro: Awake alert oriented x3 Psych: Normal mood and affect G/U: No Co[place]ran Skin: no rashes, warm and dry Lymphatic: no cervical or axillary lymphadenopathy Results & Data Results & [facility] ([facility]) Vital Signs (Past 12 Hours) Vital Signs Temp Pulse Pulse Resp BP BP Pulse Ox 03/23/20 12:46 100 H 03/23/20 11:24 37.5 C 96 H 20 168/105 H 91 03/23/20 11:12 37.5 C 95 H 20 153/81 H 94 03/23/20 08:38 37.1 C 87 18 151/68 H 92 03/23/20 07:11 84 17 91 03/23/20 07:00 90 03/23/20 06:43 152/89 H 03/23/20 05:54 36.9 C 85 18 151/87 H 93 03/23/20 01:46 85 03/23/20 01:43 37.2 C 90 18 157/90 H 90 03/23/20 06:31 03/23/20 06:31 PG Care Time/CCT Total # of Minutes Spent Total Time Spent with Patient: Total time spent is greater than 50% in coordination of care (as documented) at patient's floor/unit and/or counseling patient: [place] [address] Inpt Consult Level 5 Patient Type New Diagnoses Acute hypoxemic respiratory failure J96.01 Pneumonia J18.9 Laterality: left Lung location: unspecified part of lung Pneumonia type: due to unspecified organism Obesity E66.9
[2020-03-23] MEDS ORDERED: AZITHROMYCIN 250 MG TAB PO SCH (13:30)
--- NOTE | 2020-03-23 13:33 | Electrocardiogram Report ---
Test Reason : Blood Pressure : / mmHG Vent. Rate : 084 BPM Atrial Rate : 084 BPM P-R Int : 164 ms QRS Dur : 086 ms QT Int : 370 ms P-R-T Axes : 058 017 018 degrees QTc Int : 437 ms Normal sinus rhythm Normal ECG No previous ECGs available Confirmed by Carlos Clarke ([id number]) on 03/23/2020 1:33:03 PM Referred By: REFERRED SELF Confirmed By:Carlos Clarke
[2020-03-23] MEDS: HYDROXYCHLOROQUINE SULFATE 200 MG TAB PO SCH ×3 (14:49→21:18)
[2020-03-23] MEDS: AMLODIPINE BESYLATE 5 MG TAB PO SCH (14:51)
--- NOTE | 2020-03-23 16:49 | Hospitalist Progress Note ---
Date of Service delayed entry date of service as noted below March 23, 2020 Assessment & Plan (1) Acute hypoxemic respiratory failure: secondary COVID 19 Infection possible Pneumonia, Community Acquired -- requiring intermittent oxygen 2 L via nasal cannula -- CT chest: 1. No evidence of pulmonary thromboembolic disease. 2. Left greater than right bibasilar predominant peripheral consolidative and groundglass opacities are suggestive of infectious or inflammatory pneumonitis. This pattern of disease can be seen specifically in cases of viral pneumonia. Close follow-up is recommended. 3. Prominent mediastinal lymph nodes, likely reactive. 4. Tiny hiatal hernia. -- blood cultures: pending -- CRP 9.12 Ferritin 459 -- ID and Pulm consulted Hydroxychloroquine started monitor EKG daily -- on Ceftri + Doxy Sepsis secondary to above -- lactic acid 0.8 -- IV NSS discontinued Hypertension -- Possibly chronic given cardiomegaly on CT imaging -- no PCP ff up for years -- Amlodipine 5mg daily started PRN Hydralazine -- monitor and titrate meds Pre- DM -- a1c 6.1 -- diet, exercise -- needs to establish with PCP DVT prophylaxis. Lovenox subcu Full code Disposition lives at home plan of care discussed with patient in detail and at length all questions answered she is understanding, agreeable, comfortable with plan of care Admission and Anticipated Discharge Date Admission Date: March 22, 2020 Subjective ff up for COVID 19 infection seen resting in bed, sitting up i not in distress denies active shortness of breath, on room air on my exam somewhat weak, appetite fair (+) 2 loose BMs, no nausea, abdominal pain no chest pain, headache, dizziness denies other symptoms Review of Systems Review of Systems: All systems reviewed & are unremarkable except as noted in HPI & below Physical Exam Physical Exam: General- oriented x 3, not in distress, speaks in sentences with no effort or accessory muscle use Head- atraumatic Eyes- PERRL, EOMI, anicteric ENT- oropharynx clear Neck- supple, no JVD, no adenopathy, no thyromegaly; carotids +2/2, no bruits appreciated Lungs- clear breath sounds bilaterally Heart- normal rate, regular rhythm; no murmur, no gallop, no rub appreciated Abdomen- normal bowel sounds, nondistended, soft, nontender, no masses or hepatosplenomegaly Extremities- no pretibial edema, no calf tenderness; peripheral pulses intact Neuro- alert, oriented x 3; CN 2-12 grossly intact; motor 5/5 bilaterally;sensation 100% on all extremities; no other gross focal neurologic deficits Skin- warm & dry Results & Data Results & Data ([facility]) Vital Signs (Past 12 Hours) Vital Signs Temp Pulse Pulse Resp BP BP Pulse Ox 03/23/20 12:46 100 H 03/23/20 11:24 37.5 C 96 H 20 168/105 H 91 03/23/20 11:12 37.5 C 95 H 20 153/81 H 94 03/23/20 08:38 37.1 C 87 18 151/68 H 92 03/23/20 07:11 84 17 91 03/23/20 07:00 90 03/23/20 06:43 152/89 H 03/23/20 05:54 36.9 C 85 18 151/87 H 93 Laboratory Results all noted and reviewed
[2020-03-23] MEDS: ACETAMINOPHEN 325 MG TAB PO PRN ×2 (16:55→21:18)
[2020-03-23] MEDS ORDERED: AMLODIPINE BESYLATE 5 MG TAB PO ONE (17:15)
[2020-03-23] MEDS: DOXYCYCLINE HYCLATE 100 MG CAP PO SCH (20:11)
[2020-03-23] MEDS: cefTRIAXone SODIUM 2,000 MG in DEXTROSE 5% 50 ML IV SCH (20:17)
[2020-03-23] MEDS ORDERED: cefTRIAXone SODIUM 2,000 MG in DEXTROSE 5% 50 ML IV SCH (21:00)
[2020-03-23] MEDS: TRAMADOL HCL 50 MG TABLET PO PRN (23:53)
[2020-03-24 05:26] LABS: Basophils # (auto) 0.01 K/uL (0-0.2); Basophils % (auto) 0.2 %; Eosinophils # (auto) 0.01 K/uL (0-0.5); Eosinophils % (auto) 0.2 %; Hematocrit (blood only) 40.7 % (37-47); Hemoglobin 13.9 g/dL (12.0-16.0); Immature Granulocytes # (auto) 0.06 K/uL (0.00-0.02); Mean Corpuscular Hemoglobin 30.2 pg (25-34); Mean Corpuscular Hgb Conc 34.2 g/dL (32-36); Mean Corpuscular Volume 88.3 fL (80-100); Mean Platelet Volume 9.4 fL (7.4-10.4); Monocytes # (auto) 0.52 K/uL (0.11-0.59); Monocytes % (auto) 8.5 %; Neutrophils % (auto) 72.1 %; Platelet Count 231 K/uL (130-400); RDW Coefficient of Variation 13.1 % (11.5-14.5); RDW Standard Deviation 42.5 fL (36.4-46.3); Red Blood Count 4.61 M/uL (4.2-5.4)
[2020-03-24] MEDS: TRAMADOL HCL 50 MG TABLET PO PRN (05:42)
[2020-03-24 05:58] LABS: BUN Creatinine Ratio 19.6 (10-20); Calcium 8.3 mg/dl (8.5-10.1); Creatinine Clr Calc Pharmacy 136.4 ml/min; Est GFR (African American) 122.8; Est GFR (Non-African American) 105.9; Magnesium 1.9 mg/dl (1.8-2.4); Phosphorus 2.3 mg/dl (2.5-4.9); Potassium 3.1 mmol/L (3.5-5.1)
[2020-03-24] MEDS ORDERED: POTASSIUM CHLORIDE PWD 20 MEQ PACK PO STA (06:35)
[2020-03-24] MEDS ORDERED: POTASSIUM PHOS 3 MMOL/1 ML INFUSION IV STA (06:35)
[2020-03-24] MEDS ORDERED: MAGNESIUM SULFATE / D5W 1 GM/100 ML BAG IV ONE (06:35)
[2020-03-24] MEDS ORDERED: POTASSIUM PHOSPHATE 18 MMOL in SODIUM CHLORIDE 0.9% 500 ML IV ONE (07:00)
[2020-03-24] MEDS: guaiFENesin 600 MG TABCR PO SCH ×2 (08:08→20:27)
[2020-03-24] MEDS: ENOXAPARIN INJ 40 MG/0.4 ML SYR SQ SCH (08:08)
[2020-03-24] MEDS: DOXYCYCLINE HYCLATE 100 MG CAP PO SCH ×2 (08:09→20:27)
[2020-03-24] MEDS: AMLODIPINE BESYLATE 5 MG TAB PO SCH (08:11)
[2020-03-24] MEDS: HYDROXYCHLOROQUINE SULFATE 200 MG TAB PO SCH ×2 (08:44→21:14)
[2020-03-24] MEDS ORDERED: POTASSIUM CHLORIDE PWD 20 MEQ PACK PO ONE (10:00)
--- NOTE | 2020-03-24 14:55 | Hospitalist Progress Note ---
Date of Service March 24, 2020 Assessment & Plan (1) Acute hypoxemic respiratory failure: secondary COVID 19 Infection possible Pneumonia, Community Acquired -- requiring intermittent oxygen 2 L via nasal cannula -- CT chest: 1. No evidence of pulmonary thromboembolic disease. 2. Left greater than right bibasilar predominant peripheral consolidative and groundglass opacities are suggestive of infectious or inflammatory pneumonitis. This pattern of disease can be seen specifically in cases of viral pneumonia. Close follow-up is recommended. 3. Prominent mediastinal lymph nodes, likely reactive. 4. Tiny hiatal hernia. -- blood cultures: pending -- CRP 9.12 Ferritin 459 -- ID and Pulm consulted Hydroxychloroquine started monitor EKG daily -- on Ceftri + Doxy DIARRHEA: started today multiple loose bowel movement , no blood in stool , no abdominal pain or N/V normal appetite GI symptoms related to COVID 19 /need to r/o C diff given pt is on multiple antibiotics Stool C diff assay ordered Sepsis secondary to above -- lactic acid 0.8 -- IV NSS discontinued Hypertension -- Possibly chronic given cardiomegaly on CT imaging -BP better controlled today -- Amlodipine 5mg daily started this admission -- monitor and titrate meds Pre- DM -- a1c 6.1 -- diet, exercise -- needs to establish with PCP DVT prophylaxis. Lovenox subcu Full code Disposition lives at home expected to be dischaged home when medically stable plan of care discussed with patient in detail and at length all questions answered she is understanding, agreeable, comfortable with plan of care Admission and Anticipated Discharge Date Admission Date: March 22, 2020 Subjective feels weak and fatigued no fever or chills , has non productive cough started to have watery diarrhea today , worse after each meal no nausea or vomiting no abdominal pain Review of Systems Gastrointestinal: + diarrhea/loose stools; no abdominal pain, no nausea and no vomiting Physical Exam Constitutional: WD/WN, vitals as above no acute distress Eyes: PERRL, conjunctivae normal, anicteric sclerae ENMT: external ear and nose normal, oropharynx normal Neck: trachea midline, no thyromegaly Respiratory: + cough; + abnormal respiratory effort and no respiratory distress Auscultation: no rhonchi and no wheezes Cardiovascular: RRR, no murmur, no edema Gastrointestinal (Abdomen): Percussion/Palpation: abdomen soft; abdomen nontender Musculoskeletal: Extremities: + abnormal strength (generalized weakness ) Skin: no rashes, warm and dry Neurologic: PERRL, EOMI, accommodation nl, no face palsy, no dysarthria Psychiatric: A+Ox3, euthymic affect Results & Data Results & Data ([facility]) Vital Signs (Past 12 Hours) Vital Signs Temp Pulse Pulse Resp BP Pulse Ox 03/24/20 14:53 38.9 C H 106 H 16 140/75 92 03/24/20 11:42 37.9 C H 106 H 18 151/89 H 90 03/24/20 10:15 90 03/24/20 08:11 38.1 C H 96 H 18 143/89 H 91 03/24/20 08:00 83 03/24/20 05:08 92 03/24/20 05:07 87 L 03/24/20 03:28 37.4 C 87 18 122/67 94
[2020-03-24] MEDS: ACETAMINOPHEN 325 MG TAB PO PRN (14:57)
[2020-03-24] MEDS ORDERED: SODIUM CHLORIDE 0.9% 1000ML 1,000 ML IV SCH (18:30)
[2020-03-24] MEDS: NSS + 20MEQ KCL 20 MEQ/1,000 ML BAG IV SCH (20:14)
[2020-03-24] MEDS: cefTRIAXone SODIUM 2,000 MG in DEXTROSE 5% 50 ML IV SCH (20:14)
[2020-03-24] MEDS ORDERED: ASCORBIC ACID 500 MG TAB PO SCH (21:00)
[2020-03-24] MEDS ORDERED: ZINC SULFATE 220 MG CAPSULE PO SCH (21:00)
[2020-03-24] MEDS: HydrALAZINE HCL 20 MG/ML VIAL IV PRN (23:35)
[2020-03-25] MEDS: NSS + 20MEQ KCL 20 MEQ/1,000 ML BAG IV SCH ×2 (05:02→14:51)
[2020-03-25] MEDS: ZINC SULFATE 220 MG CAPSULE PO SCH ×2 (05:03→12:11)
[2020-03-25] MEDS: ASCORBIC ACID 500 MG TAB PO SCH ×3 (05:03→20:13)
[2020-03-25 06:31] LABS: BUN Creatinine Ratio 17.2 (10-20); C Reactive Protein 12.6 mg/dl (0-0.29); Calcium 8.5 mg/dl (8.5-10.1); Creatinine Clr Calc Pharmacy 117.2 ml/min; Est GFR (African American) 116.3; Est GFR (Non-African American) 100.3; Magnesium 2.1 mg/dl (1.8-2.4); Potassium 3.6 mmol/L (3.5-5.1)
[2020-03-25] MEDS ORDERED: AMLODIPINE BESYLATE 5 MG TAB PO SCH (08:00)
[2020-03-25] MEDS: ENOXAPARIN INJ 40 MG/0.4 ML SYR SQ SCH (08:15)
[2020-03-25] MEDS: AMLODIPINE BESYLATE 5 MG TAB PO SCH (08:16)
[2020-03-25] MEDS: guaiFENesin 600 MG TABCR PO SCH ×2 (08:16→20:13)
[2020-03-25] MEDS: DOXYCYCLINE HYCLATE 100 MG CAP PO SCH ×2 (08:16→20:13)
[2020-03-25] MEDS: HYDROXYCHLOROQUINE SULFATE 200 MG TAB PO SCH ×2 (10:07→20:13)
[2020-03-25] MEDS ORDERED: ERGOCALCIFEROL 50,000 UNITS CAP PO SCH (11:00)
[2020-03-25] MEDS ORDERED: LACTOBACILLUS ACIDOPHILUS (FLORANEX) TAB PO SCH (12:00)
[2020-03-25] MEDS: CEROVITE ADV FORMULA TAB PO SCH (12:12)
[2020-03-25] MEDS: LACTOBACILLUS ACIDOPHILUS 1 GM PACK PO SCH ×2 (14:04→16:06)
--- NOTE | 2020-03-25 14:55 | Electrocardiogram Report ---
Test Reason : Blood Pressure : / mmHG Vent. Rate : 096 BPM Atrial Rate : 096 BPM P-R Int : 158 ms QRS Dur : 088 ms QT Int : 386 ms P-R-T Axes : 054 040 002 degrees QTc Int : 487 ms Normal sinus rhythm Possible Left atrial enlargement Nonspecific T wave abnormality Abnormal ECG Confirmed by Carlos Clarke ([id number]) on 03/25/2020 2:55:07 PM Referred By: REFERRED SELF Confirmed By:Carlos Clarke
--- NOTE | 2020-03-25 16:56 | Hospitalist Progress Note ---
Date of Service March 25, 2020 Assessment & Plan (1) Acute hypoxemic respiratory failure: secondary COVID 19 Infection possible Pneumonia, Community Acquired -- requiring intermittent oxygen 2 L via nasal cannula( was not on home 02 ) -- CT chest: 1. No evidence of pulmonary thromboembolic disease. 2. Left greater than right bibasilar predominant peripheral consolidative and groundglass opacities are suggestive of infectious or inflammatory pneumonitis. This pattern of disease can be seen specifically in cases of viral pneumonia. Close follow-up is recommended. 3. Prominent mediastinal lymph nodes, likely reactive. 4. Tiny hiatal hernia. -- blood cultures: pending -- CRP continues to elevate 12 today with elevated LDH -- ID and Pulm consulted appreciate input on Hydroxychloroquine /monitor for Qtc prolongation EKG daily ordered --will D/c Rocephin cont PO doxycycline DIARRHEA: multiple loose bowel movement , no blood in stool , no abdominal pain or N/V normal appetite GI symptoms possible related to COVID 19 vs Abx induced -IV rocephin D/arjun ordered to DC Rocephin added Lactinex Stool C diff -negative /ordering PRN imodium Sepsis secondary to above -- lactic acid 0.8 -- IV NSS discontinued Hypertension -- Possibly chronic given cardiomegaly on CT imaging was not on any antihypertensive meds /has not seen any Physician for years -BP better controlled -- Amlodipine 5mg daily started this admission -- monitor and titrate meds Pre- DM -- a1c 6.1 -- diet, exercise -- needs to establish with PCP for follow up care DVT prophylaxis. Lovenox subcu Full code Disposition lives at home expected to be dischaged home when medically stable plan of care discussed with patient in detail and at length all questions answered she is understanding, agreeable, comfortable with plan of care Admission and Anticipated Discharge Date Admission Date: March 22, 2020 Subjective continues to have loose watery bowel movement , no abdominal pain or nausea cough has improved -non productive no temp spike noted pt reports of extreme fatigue and weakness Review of Systems Review of Systems: As per HPI, all 10 systems reviewed, all other ROS negative Gastrointestinal: + diarrhea/loose stools; no abdominal pain, no nausea and no vomiting Physical Exam Constitutional: WD/WN, vitals as above no acute distress Eyes: PERRL, conjunctivae normal, anicteric sclerae ENMT: external ear and nose normal, oropharynx normal Neck: trachea midline, no thyromegaly Respiratory: + cough; + abnormal respiratory effort and no respiratory distress Auscultation: no rhonchi and no wheezes Cardiovascular: RRR, no murmur, no edema Gastrointestinal (Abdomen): Percussion/Palpation: abdomen soft; abdomen nontender Musculoskeletal: Extremities: + abnormal strength (generalized weakness ) Skin: no rashes, warm and dry Neurologic: PERRL, EOMI, accommodation nl, no face palsy, no dysarthria Psychiatric: A+Ox3, euthymic affect Results & Data Results & Data ([facility]) Vital Signs (Past 12 Hours) Vital Signs Temp Pulse Pulse Resp BP BP Pulse Ox 03/25/20 15:46 88 03/25/20 14:52 37.6 C H 97 H 16 145/82 H 91 03/25/20 12:49 37.4 C 03/25/20 12:16 98 H 18 140/86 91 03/25/20 08:14 37.3 C 108 H 18 144/84 H 90 03/25/20 08:00 91 H
[2020-03-25] MEDS: LOPERAMIDE HCL 2 MG CAP PO PRN (18:55)
[2020-03-25] MEDS: ACETAMINOPHEN 325 MG TAB PO PRN (20:13)
[2020-03-26] MEDS: NSS + 20MEQ KCL 20 MEQ/1,000 ML BAG IV SCH ×3 (00:06→21:07)
[2020-03-26] MEDS: LACTOBACILLUS ACIDOPHILUS 1 GM PACK PO SCH ×3 (07:55→17:15)
[2020-03-26] MEDS: guaiFENesin 600 MG TABCR PO SCH ×2 (07:55→21:13)
[2020-03-26] MEDS: DOXYCYCLINE HYCLATE 100 MG CAP PO SCH ×2 (07:56→21:13)
[2020-03-26] MEDS: ENOXAPARIN INJ 40 MG/0.4 ML SYR SQ SCH (07:56)
[2020-03-26] MEDS: ASCORBIC ACID 500 MG TAB PO SCH ×2 (07:57→21:13)
[2020-03-26] MEDS: AMLODIPINE BESYLATE 5 MG TAB PO SCH (07:57)
[2020-03-26 07:59] LABS: BUN Creatinine Ratio 16.7 (10-20); Calcium 8.5 mg/dl (8.5-10.1); Creatinine Clr Calc Pharmacy 150.6 ml/min; Est GFR (African American) 126.2; Est GFR (Non-African American) 108.9; Magnesium 2.1 mg/dl (1.8-2.4); Potassium 3.9 mmol/L (3.5-5.1)
[2020-03-26 08:00] LABS: C Reactive Protein 12.9 mg/dl (0-0.29); Phosphorus 2.7 mg/dl (2.5-4.9)
[2020-03-26 08:05] LABS: D Dimer 1110 ug/L FEU (0-500)
[2020-03-26] MEDS: ACETAMINOPHEN 325 MG TAB PO PRN (08:05)
[2020-03-26] MEDS: HYDROXYCHLOROQUINE SULFATE 200 MG TAB PO SCH ×2 (08:05→21:17)
[2020-03-26] MEDS ORDERED: CHOLECALCIFEROL 1,000 UNITS 25 MCG TAB PO SCH (09:00)
--- NOTE | 2020-03-26 11:20 | Hospitalist Progress Note ---
Date of Service March 26, 2020 Assessment & Plan (1) Acute hypoxemic respiratory failure: secondary COVID 19 Infection possible Pneumonia, Community Acquired -- requiring intermittent oxygen 2 L via nasal cannula( was not on home 02 ) -on PO doxycycline will treat for total 7 days no evidence of sepsis at presented -- CT chest: 1. No evidence of pulmonary thromboembolic disease. 2. Left greater than right bibasilar predominant peripheral consolidative and groundglass opacities are suggestive of infectious or inflammatory pneumonitis. This pattern of disease can be seen specifically in cases of viral pneumonia. Close follow-up is recommended. 3. Prominent mediastinal lymph nodes, likely reactive. 4. Tiny hiatal hernia. -- ID and Pulm consulted appreciate input on Hydroxychloroquine /monitor for Qtc prolongation EKG shows Qtc 437 pt had 17 beats of non sustained vtach around 4 am no symptoms d/w Pulmonology given stable qtc , doubt pt having cardiac rhythm issues due to Hydroxychloroquine ordered to start on Bete afia Lopressor 12.5 mg BID tele monitoring DIARRHEA: symptoms resolved , no BM today possible GI symptoms related to COVID 19 vs Abx induced -IV rocephin D/arjun ordered to DC Rocephin added Lactinex Stool C diff -negative /ordered PRN imodium SEPSIS : admitted with sepsis syndrome due to combination of COVID 19 disease /pneumonia resolved vitals been stable Hypertension -- Possibly chronic/essential HTN - untreated - given cardiomegaly on CT chest imaging was not on any antihypertensive meds /has not seen any Physician for years -BP better controlled -- Amlodipine 5mg daily started this admission -dose increased to 10 mg daily added Lopressor 12.5 mg BID -- monitor and titrate meds Pre- DM -- a1c 6.1 -- diet, exercise -- needs to establish with PCP for follow up care DVT prophylaxis. Lovenox subcu Full code Disposition lives at home expected to be discharged home when medically stable plan of care discussed with patient in detail and at length all questions answered she is understanding, agreeable, comfortable with plan of care Admission and Anticipated Discharge Date Admission Date: March 22, 2020 Subjective sitting up on chair feels very wiped out fever /Temp of 38 c/100.4 F noted this morning pt does no have any symptoms of chills, rigor or headache no diarrhea /loose stool today no cough or SOB Review of Systems Review of Systems: As per HPI, all 10 systems reviewed, all other ROS negative Constitutional: + fever, + fatigue, + malaise and + weakness; no chills and no body aches Gastrointestinal: no abdominal pain, no nausea, no vomiting and no diarrhea/loose stools Physical Exam Constitutional: WD/WN, vitals as above no acute distress Eyes: PERRL, conjunctivae normal, anicteric sclerae ENMT: external ear and nose normal, oropharynx normal Neck: trachea midline, no thyromegaly Respiratory: + cough; + abnormal respiratory effort and no respiratory distress Auscultation: no rhonchi and no wheezes Cardiovascular: RRR, no murmur, no edema Gastrointestinal (Abdomen): Percussion/Palpation: abdomen soft; abdomen nontender Musculoskeletal: Extremities: + abnormal strength (generalized weakness ) Skin: no rashes, warm and dry Neurologic: PERRL, EOMI, accommodation nl, no face palsy, no dysarthria Psychiatric: A+Ox3, euthymic affect Results & Data Results & Data ([facility]) Vital Signs (Past 12 Hours) Vital Signs Temp Pulse Pulse Resp BP Pulse Ox 03/26/20 08:44 95 H 03/26/20 07:59 38 C H 97 H 20 160/79 H 89 L 03/26/20 04:32 37.8 C H 91 H 16 140/84 91 03/26/20 01:41 87 03/26/20 00:07 36.8 C 86 16 123/80 90
[2020-03-26] MEDS: ZINC SULFATE 220 MG CAPSULE PO SCH (12:09)
[2020-03-26] MEDS: METOPROLOL TARTRATE 25 MG TAB PO SCH ×2 (12:09→21:13)
[2020-03-26] MEDS: CEROVITE ADV FORMULA TAB PO SCH (12:09)
--- NOTE | 2020-03-26 15:03 | Electrocardiogram Report ---
Test Reason : Blood Pressure : / mmHG Vent. Rate : 109 BPM Atrial Rate : 109 BPM P-R Int : 160 ms QRS Dur : 082 ms QT Int : 320 ms P-R-T Axes : 032 048 -04 degrees QTc Int : 430 ms Sinus tachycardia Nonspecific T wave abnormality Abnormal ECG When compared with ECG of 25-MAR-2020 09:21, Nonspecific T wave abnormality no longer evident in Anterior leads QT has shortened Confirmed by Carlos Clarke ([id number]) on 03/26/2020 3:03:10 PM Referred By: REFERRED SELF Confirmed By:Carlos Clarke
--- NOTE | 2020-03-26 15:29 | Electrocardiogram Report ---
Test Reason : Blood Pressure : / mmHG Vent. Rate : 097 BPM Atrial Rate : 097 BPM P-R Int : 170 ms QRS Dur : 084 ms QT Int : 352 ms P-R-T Axes : 047 051 -01 degrees QTc Int : 447 ms Normal sinus rhythm Normal ECG When compared with ECG of 25-MAR-2020 09:21, No significant change was found Confirmed by Carlos Clarke ([id number]) on 03/26/2020 3:29:10 PM Referred By: REFERRED SELF Confirmed By:Carlos Clarke
[2020-03-26] MEDS: HydrALAZINE HCL 20 MG/ML VIAL IV PRN (17:26)
[2020-03-27] MEDS: NSS + 20MEQ KCL 20 MEQ/1,000 ML BAG IV SCH (06:38)
[2020-03-27 07:08] LABS: BUN Creatinine Ratio 16.3 (10-20); C Reactive Protein 13.3 mg/dl (0-0.29); Calcium 8.5 mg/dl (8.5-10.1); Creatinine Clr Calc Pharmacy 150.6 ml/min; Est GFR (African American) 126.2; Est GFR (Non-African American) 108.9; Magnesium 2.1 mg/dl (1.8-2.4); Phosphorus 3.1 mg/dl (2.5-4.9)
[2020-03-27] MEDS: METOPROLOL TARTRATE 25 MG TAB PO SCH ×2 (07:58→19:39)
[2020-03-27] MEDS: guaiFENesin 600 MG TABCR PO SCH ×2 (07:59→19:38)
[2020-03-27] MEDS: LACTOBACILLUS ACIDOPHILUS 1 GM PACK PO SCH ×3 (07:59→16:49)
[2020-03-27] MEDS: DOXYCYCLINE HYCLATE 100 MG CAP PO SCH ×2 (08:00→19:38)
[2020-03-27] MEDS: ASCORBIC ACID 500 MG TAB PO SCH ×2 (08:00→19:37)
[2020-03-27] MEDS: AMLODIPINE BESYLATE 5 MG TAB PO SCH (08:00)
[2020-03-27] MEDS: CHOLECALCIFEROL 1,000 UNITS 25 MCG TAB PO SCH (08:01)
[2020-03-27] MEDS: ENOXAPARIN INJ 40 MG/0.4 ML SYR SQ SCH (08:01)
[2020-03-27] MEDS: HYDROXYCHLOROQUINE SULFATE 200 MG TAB PO SCH (08:06)
[2020-03-27 10:35] LABS: D Dimer 1560 ug/L FEU (0-500)
[2020-03-27] MEDS: ZINC SULFATE 220 MG CAPSULE PO SCH (11:34)
[2020-03-27] MEDS: CEROVITE ADV FORMULA TAB PO SCH (11:34)
[2020-03-27] MEDS: LOPERAMIDE HCL 2 MG CAP PO PRN (12:16)
--- NOTE | 2020-03-27 12:31 | Hospitalist Progress Note ---
Date of Service March 27, 2020 Assessment & Plan (1) Acute hypoxemic respiratory failure: secondary COVID 19 Disease with possible Pneumonia, Community Acquired --intermittent hypoxia on oxygen 3 L via nasal cannula( was not on home 02 ) -on PO doxycycline needs treatment for total 7 days no cough or fever ordered for repeat Cxray in AM -- CT chest: 1. No evidence of pulmonary thromboembolic disease. 2. Left greater than right bibasilar predominant peripheral consolidative and ground glass opacities are suggestive of infectious or inflammatory pneumonitis. This pattern of disease can be seen specifically in cases of viral pneumonia. Close follow-up is recommended. D dimer /LDH /CRP remains elevated due to infection -- ID and Pulm consulted appreciate input on Hydroxychloroquine empiric tx for COVID -19 /monitor for Qtc prolongation SEPSIS : admitted with sepsis syndrome due to combination of COVID 19 disease /pneumonia tx as outlined above vitals been stable NON SUSTAINED VTACH started on Bete afia Lopressor 12.5 mg BID no further episode note on tele in past 24 hrs DIARRHEA: symptoms improved possible GI symptoms related to COVID 19 vs Abx induced -IV rocephin D/arjun added Lactinex /ordered PRN imodium Stool C diff -negative / Hypertension -- Possibly chronic/essential HTN - untreated - given cardiomegaly on CT chest imaging was not on any antihypertensive meds /has not seen any Physician for years -BP better controlled -- Amlodipine 5mg daily started this admission -dose increased to 10 mg daily added Lopressor 12.5 mg BID -- monitor and titrate meds Pre- DM -- a1c 6.1 -- diet, exercise -- needs to establish with PCP for follow up care DVT prophylaxis. Lovenox subcu Full code Disposition lives at home expected to be discharged home when medically stable plan of care discussed with patient in detail and at length all questions answered she is understanding, agreeable, comfortable with plan of care Admission and Anticipated Discharge Date Admission Date: March 22, 2020 Subjective sitting up on chair no loose bowel movement today cough has improved worsening of hypoxia /desaturation noted with activity /requiring 3 L 02 NC has been afebrile for > 24 hrs ( last temp spike 38 @ 8 am yesterday 03/26/20 ) , vitals stable Review of Systems Review of Systems: As per HPI, all 10 systems reviewed, all other ROS negative Constitutional: + fatigue, + malaise and + weakness; no fever, no chills and no body aches Respiratory: + cough and + dyspnea on exertion Physical Exam Constitutional: WD/WN, vitals as above no acute distress Eyes: PERRL, conjunctivae normal, anicteric sclerae ENMT: external ear and nose normal, oropharynx normal Neck: trachea midline, no thyromegaly Respiratory: + cough; + abnormal respiratory effort and no respiratory distress Auscultation: no rhonchi and no wheezes Cardiovascular: RRR, no murmur, no edema Gastrointestinal (Abdomen): Percussion/Palpation: abdomen soft; abdomen nontender Musculoskeletal: Extremities: + abnormal strength (generalized weakness ) Skin: no rashes, warm and dry Neurologic: PERRL, EOMI, accommodation nl, no face palsy, no dysarthria Psychiatric: A+Ox3, euthymic affect Results & Data Results & Data ([facility]) Vital Signs (Past 12 Hours) Vital Signs Temp Pulse Pulse Resp BP Pulse Ox 03/27/20 12:00 36.7 C 88 20 150/88 H 90 03/27/20 07:45 36.4 C L 88 20 166/85 H 91 03/27/20 03:49 37.1 C 81 16 120/62 91 03/27/20 00:28 37.3 C 84 81 16 119/70 90
[2020-03-28 07:48] LABS: D Dimer 1010 ug/L FEU (0-500)
--- NOTE | 2020-03-28 08:25 | XRay Report ---
XR chest 1V portable HISTORY: Shortness of breath. Follow-up. COMPARISON: Chest CTA 03/23/2020. FINDINGS: No pneumothorax. The heart remains mildly enlarged. Bilateral perihilar interstitial thicke indigo and perihilar and bibasilar airspace opacities have progressed. No pneumothorax. Possible small left pleural effusion. IMPRESSION: Interval progression of interstitial thickening and bilateral airspace opacities most pronounced at t he lung bases. Possible small left pleural effusion. This may be due to pulmonary edema or an atypica l pneumonitis. ACT 112: Negative or not required by law. Electronically signed by: Declan Espinoza M.D. 03/28/2020 8:23 AM
[2020-03-28] MEDS: ASCORBIC ACID 500 MG TAB PO SCH ×2 (08:41→19:51)
[2020-03-28] MEDS: guaiFENesin 600 MG TABCR PO SCH ×2 (08:41→19:51)
[2020-03-28] MEDS: DOXYCYCLINE HYCLATE 100 MG CAP PO SCH ×2 (08:41→19:51)
[2020-03-28] MEDS: CHOLECALCIFEROL 1,000 UNITS 25 MCG TAB PO SCH (08:41)
[2020-03-28] MEDS: AMLODIPINE BESYLATE 5 MG TAB PO SCH (08:42)
[2020-03-28] MEDS: METOPROLOL TARTRATE 25 MG TAB PO SCH ×2 (08:42→19:52)
[2020-03-28] MEDS: ENOXAPARIN INJ 40 MG/0.4 ML SYR SQ SCH (08:42)
[2020-03-28] MEDS: LACTOBACILLUS ACIDOPHILUS 1 GM PACK PO SCH ×3 (08:43→16:42)
--- NOTE | 2020-03-28 08:57 | Electrocardiogram Report ---
Test Reason : Blood Pressure : / mmHG Vent. Rate : 082 BPM Atrial Rate : 082 BPM P-R Int : 176 ms QRS Dur : 088 ms QT Int : 380 ms P-R-T Axes : 037 048 -09 degrees QTc Int : 443 ms Normal sinus rhythm Nonspecific ST and T wave abnormality Inferior leads When compared with ECG of 26-MAR-2020 06:48, No significant change was found Confirmed by Gavin Romero ([id number]) on 03/28/2020 8:56:29 AM Referred By: REFERRED SELF Confirmed By:Gavin Romero
[2020-03-28 09:21] LABS: BUN Creatinine Ratio 16.3 (10-20); C Reactive Protein 7.91 mg/dl (0-0.29); Calcium 8.8 mg/dl (8.5-10.1); Est GFR (African American) 122.8; Est GFR (Non-African American) 105.9; Potassium 3.7 mmol/L (3.5-5.1)
[2020-03-28 10:13] LABS: D Dimer 1110 ug/L FEU (0-500)
[2020-03-28] MEDS: CEROVITE ADV FORMULA TAB PO SCH (12:36)
[2020-03-28] MEDS: ZINC SULFATE 220 MG CAPSULE PO SCH (12:37)
--- NOTE | 2020-03-28 15:56 | Hospitalist Progress Note ---
Date of Service March 28, 2020 Assessment & Plan (1) Acute hypoxemic respiratory failure: secondary COVID 19 Disease with possible Pneumonia, Community Acquired --intermittent hypoxia on oxygen 3 L via nasal cannula( was not on home 02 ) -on PO doxycycline needs treatment for total 7 days no cough or fever ordered for repeat Cxray shows pulm congestion ordered for IV LAix 40 mg X1 -- CT chest: 1. No evidence of pulmonary thromboembolic disease. 2. Left greater than right bibasilar predominant peripheral consolidative and ground glass opacities are suggestive of infectious or inflammatory pneumonitis. This pattern of disease can be seen specifically in cases of viral pneumonia. Close follow-up is recommended. D dimer /LDH /CRP remains elevated due to infection -- ID and Pulm consulted appreciate input on Hydroxychloroquine empiric tx for COVID -19 /monitor for Qtc prolongation SEPSIS : admitted with sepsis syndrome due to combination of COVID 19 disease /pneumonia tx as outlined above vitals been stable NON SUSTAINED VTACH started on Bete afia Lopressor 12.5 mg BID no further episode note on tele in past 24 hrs DIARRHEA: symptoms improved possible GI symptoms related to COVID 19 vs Abx induced -IV rocephin D/arjun added Lactinex /ordered PRN imodium Stool C diff -negative / Hypertension -- Possibly chronic/essential HTN - untreated - given cardiomegaly on CT chest imaging was not on any antihypertensive meds /has not seen any Physician for years -BP better controlled -- Amlodipine 5mg daily started this admission -dose increased to 10 mg daily added Lopressor 12.5 mg BID -- monitor and titrate meds Pre- DM -- a1c 6.1 -- diet, exercise -- needs to establish with PCP for follow up care DVT prophylaxis. Lovenox subcu Full code Disposition lives at home expected to be discharged home when medically stable plan of care discussed with patient in detail and at length all questions answered she is understanding, agreeable, comfortable with plan of care Admission and Anticipated Discharge Date Admission Date: March 22, 2020 Subjective no new complains no resting SOB , requiring supplemental 02 GI symptoms -nausea /diarrhea has resolved vitals stable Physical Exam Constitutional: WD/WN, vitals as above no acute distress Eyes: PERRL, conjunctivae normal, anicteric sclerae ENMT: external ear and nose normal, oropharynx normal Neck: trachea midline, no thyromegaly Respiratory: + cough; + abnormal respiratory effort and no respiratory distress Auscultation: no rhonchi and no wheezes Cardiovascular: RRR, no murmur, no edema Gastrointestinal (Abdomen): Percussion/Palpation: abdomen soft; abdomen nontender Musculoskeletal: Extremities: + abnormal strength (generalized weakness ) Skin: no rashes, warm and dry Neurologic: PERRL, EOMI, accommodation nl, no face palsy, no dysarthria Psychiatric: A+Ox3, euthymic affect Results & Data Results & Data ([facility]) Vital Signs (Past 12 Hours) Vital Signs Temp Pulse Pulse Pulse Resp BP BP 03/28/20 15:12 36.9 C 75 23 140/77 03/28/20 14:54 80 03/28/20 11:00 36.5 C 75 21 129/85 03/28/20 08:33 37.1 C 89 22 146/84 H 03/28/20 07:44 67 Pulse Ox 03/28/20 15:12 91 03/28/20 14:54 03/28/20 11:00 91 03/28/20 08:33 92 03/28/20 07:44
[2020-03-28] MEDS ORDERED: FUROSEMIDE 40 MG in SYRINGE 0 ML IV ONE (16:15)
[2020-03-29] MEDS: ACETAMINOPHEN 325 MG TAB PO PRN (06:26)
[2020-03-29 07:30] LABS: BUN Creatinine Ratio 22.8 (10-20); Calcium 9.4 mg/dl (8.5-10.1); Creatinine Clr Calc Pharmacy 119.7 ml/min; Est GFR (African American) 117.6; Est GFR (Non-African American) 101.5; Potassium 3.6 mmol/L (3.5-5.1)
[2020-03-29 07:34] LABS: C Reactive Protein 5.15 mg/dl (0-0.29)
[2020-03-29] MEDS: LACTOBACILLUS ACIDOPHILUS 1 GM PACK PO SCH ×3 (08:15→16:48)
[2020-03-29] MEDS: CHOLECALCIFEROL 1,000 UNITS 25 MCG TAB PO SCH (08:15)
[2020-03-29] MEDS: guaiFENesin 600 MG TABCR PO SCH ×2 (08:15→20:17)
[2020-03-29] MEDS: METOPROLOL TARTRATE 25 MG TAB PO SCH ×2 (08:15→20:17)
[2020-03-29] MEDS: ASCORBIC ACID 500 MG TAB PO SCH ×2 (08:15→20:17)
[2020-03-29] MEDS: AMLODIPINE BESYLATE 5 MG TAB PO SCH (08:15)
[2020-03-29] MEDS: ENOXAPARIN INJ 40 MG/0.4 ML SYR SQ SCH (08:16)
[2020-03-29 10:17] LABS: D Dimer 1150 ug/L FEU (0-500)
[2020-03-29] MEDS: CEROVITE ADV FORMULA TAB PO SCH (11:47)
[2020-03-29] MEDS: ZINC SULFATE 220 MG CAPSULE PO SCH (11:47)
--- NOTE | 2020-03-29 13:09 | Hospitalist Progress Note ---
Date of Service March 29, 2020 Assessment & Plan (1) Acute hypoxemic respiratory failure: secondary COVID 19 Disease with possible Pneumonia, Community Acquired --intermittent hypoxia on oxygen 3 L via nasal cannula( was not on home 02 ) -on PO doxycycline complete treatment for total 7 days no cough or fever ordered for repeat Cxray shows pulm congestion given Lasix 40 mg X1 time breathing much improved -- CT chest: 1. No evidence of pulmonary thromboembolic disease. 2. Left greater than right bibasilar predominant peripheral consolidative and ground glass opacities are suggestive of infectious or inflammatory pneumonitis. This pattern of disease can be seen specifically in cases of viral pneumonia. Close follow-up is recommended. D dimer /LDH /CRP remains elevated due to infection -- ID and Pulm consulted appreciate input on Hydroxychloroquine empiric tx for COVID -19 /monitor for Qtc prolongation SEPSIS : admitted with sepsis syndrome due to combination of COVID 19 disease /pneumonia tx as outlined above vitals been stable NON SUSTAINED VTACH started on Bete afia Lopressor 12.5 mg BID no further episode note on tele in past 24 hrs DIARRHEA: symptoms improved possible GI symptoms related to COVID 19 vs Abx induced -IV rocephin D/arjun added Lactinex /ordered PRN imodium Stool C diff -negative / Hypertension -- Possibly chronic/essential HTN - untreated - given cardiomegaly on CT chest imaging was not on any antihypertensive meds /has not seen any Physician for years -BP better controlled -- Amlodipine 5mg daily started this admission -dose increased to 10 mg daily added Lopressor 12.5 mg BID -- monitor and titrate meds Pre- DM -- a1c 6.1 -- diet, exercise -- needs to establish with PCP for follow up care DVT prophylaxis. Lovenox subcu Full code Disposition lives at home expected to be discharged home when medically stable plan of care discussed with patient in detail and at length all questions answered she is understanding, agreeable, comfortable with plan of care Admission and Anticipated Discharge Date Admission Date: March 22, 2020 Subjective doing well no fever for past 24 hrs cough and SOB has resolved no GI symptoms Review of Systems Review of Systems: As per HPI, all 10 systems reviewed, all other ROS negative Constitutional: + fatigue, + malaise and + weakness; no fever, no chills and no body aches Respiratory: + cough and + dyspnea on exertion Physical Exam Constitutional: WD/WN, vitals as above no acute distress Eyes: PERRL, conjunctivae normal, anicteric sclerae ENMT: external ear and nose normal, oropharynx normal Neck: trachea midline, no thyromegaly Respiratory: + cough; + abnormal respiratory effort and no respiratory distress Auscultation: no rhonchi and no wheezes Cardiovascular: RRR, no murmur, no edema Gastrointestinal (Abdomen): Percussion/Palpation: abdomen soft; abdomen nontender Musculoskeletal: Extremities: + abnormal strength (generalized weakness ) Skin: no rashes, warm and dry Neurologic: PERRL, EOMI, accommodation nl, no face palsy, no dysarthria Psychiatric: A+Ox3, euthymic affect Results & Data Results & Data ([facility]) Vital Signs (Past 12 Hours) Vital Signs Temp Pulse Resp BP Pulse Ox 03/29/20 10:49 36.8 C 72 134/75 94 03/29/20 08:00 36.7 C 82 148/89 H 94 03/29/20 04:06 94 03/29/20 04:05 36.6 C 67 18 134/76 97
[2020-03-30] MEDS: LACTOBACILLUS ACIDOPHILUS 1 GM PACK PO SCH ×3 (07:38→17:22)
[2020-03-30] MEDS: METOPROLOL TARTRATE 25 MG TAB PO SCH ×2 (07:39→20:19)
[2020-03-30] MEDS: guaiFENesin 600 MG TABCR PO SCH ×2 (07:40→20:18)
[2020-03-30] MEDS: CHOLECALCIFEROL 1,000 UNITS 25 MCG TAB PO SCH (07:40)
[2020-03-30] MEDS: ASCORBIC ACID 500 MG TAB PO SCH ×2 (07:40→20:20)
[2020-03-30] MEDS: AMLODIPINE BESYLATE 5 MG TAB PO SCH (07:40)
[2020-03-30] MEDS: ENOXAPARIN INJ 40 MG/0.4 ML SYR SQ SCH (07:40)
[2020-03-30 10:48] LABS: D Dimer 1050 ug/L FEU (0-500)
[2020-03-30] MEDS: CEROVITE ADV FORMULA TAB PO SCH (12:13)
[2020-03-30] MEDS: ZINC SULFATE 220 MG CAPSULE PO SCH (12:13)
--- NOTE | 2020-03-30 18:07 | Hospitalist Progress Note ---
Date of Service March 30, 2020 Assessment & Plan (1) Acute hypoxemic respiratory failure: secondary COVID 19 Disease with possible Pneumonia, Community Acquired --respiratory symptoms has improved markedly -completed PO doxycycline treatment for total 7 days D dimer /LDH /CRP -inflammatory markers continues to improve -- ID and Pulm consulted appreciate input completed tx with Hydroxychloroquine for COVID -19 /quinolone avoided due to prolong Qtc -- CT chest: 1. No evidence of pulmonary thromboembolic disease. 2. Left greater than right bibasilar predominant peripheral consolidative and ground glass opacities are suggestive of infectious or inflammatory pneumonitis. This pattern of disease can be seen specifically in cases of viral pneumonia. Close follow-up is recommended. SEPSIS : admitted with sepsis syndrome due to combination of COVID 19 disease /pneumonia resolved vitals been stable NON SUSTAINED VTACH started on Bete afia Lopressor 12.5 mg BID no further episode note on tele DIARRHEA: symptoms resolved possible GI symptoms related to COVID 19 Stool C diff -negative / Hypertension -- Possibly chronic/essential HTN - untreated - given cardiomegaly on CT chest imaging was not on any antihypertensive meds /has not seen any Physician for years -BP better controlled -- Amlodipine 5mg daily started this admission -dose increased to 10 mg daily added Lopressor 12.5 mg BID -- monitor and titrate meds Pre- DM -- a1c 6.1 -- diet, exercise -- needs to establish with PCP for follow up care DVT prophylaxis. Lovenox subcu Full code Disposition lives at home expected to be discharged home when medically stable plan of care discussed with patient in detail and at length all questions answered she is understanding, agreeable, comfortable with plan of care Admission and Anticipated Discharge Date Admission Date: March 22, 2020 Subjective sitting up on chair feels well , no complain of chills , has been afebrile > 24 hrs no cough or SOB on minimum 02 requirement 1 L via NC ( was not on home 02 prior to admission ) GI symptoms : loose stool , nausea , vomiting has resolved for past few days tolerating diet improvement of fatigue , no body ache or headache Review of Systems Review of Systems: All systems reviewed & are unremarkable except as noted in HPI & below Constitutional: no fever, no chills, no body aches and no malaise Respiratory: no cough, no dyspnea, no sputum production and no wheezing Cardiovascular: + dyspnea at rest; no chest pain, no palpitations and no lightheadedness Gastrointestinal: no abdominal pain, no nausea, no vomiting and no diarrhea /loose stools Musculoskeletal: no myalgia and no body aches Neurologic: no headache(s) Physical Exam Constitutional: WD/WN, vitals as above no acute distress Eyes: PERRL, conjunctivae normal, anicteric sclerae ENMT: external ear and nose normal, oropharynx normal Neck: trachea midline, no thyromegaly Respiratory: + cough; + abnormal respiratory effort and no respiratory distress Auscultation: no rhonchi and no wheezes Cardiovascular: RRR, no murmur, no edema Gastrointestinal (Abdomen): Percussion/Palpation: abdomen soft; abdomen nont celena Musculoskeletal: Extremities: + abnormal strength (generalized weakness ) Skin: no rashes, warm and dry Neurologic: PERRL, EOMI, accommodation nl, no face palsy, no dysarthria Psychiatric: A+Ox3, euthymic affect Results & Data Results & Data ([facility]) Vital Signs (Past 12 Hours) Vital Signs Temp Pulse Pulse Resp BP Pulse Ox 03/30/20 16:00 77 18 153/76 H 93 03/30/20 15:49 70 03/30/20 10:00 55 L 03/30/20 07:23 36.9 C 73 18 138/67 91
[2020-03-31 06:47] LABS: D Dimer 1310 ug/L FEU (0-500)
[2020-03-31] MEDS: LACTOBACILLUS ACIDOPHILUS 1 GM PACK PO SCH ×3 (07:55→16:34)
[2020-03-31] MEDS: ENOXAPARIN INJ 40 MG/0.4 ML SYR SQ SCH (07:55)
[2020-03-31] MEDS: guaiFENesin 600 MG TABCR PO SCH ×2 (07:56→20:14)
[2020-03-31] MEDS: AMLODIPINE BESYLATE 5 MG TAB PO SCH (08:34)
[2020-03-31] MEDS: METOPROLOL TARTRATE 25 MG TAB PO SCH ×2 (08:34→20:13)
[2020-03-31] MEDS: ASCORBIC ACID 500 MG TAB PO SCH ×2 (08:35→20:13)
[2020-03-31] MEDS: CHOLECALCIFEROL 1,000 UNITS 25 MCG TAB PO SCH (08:35)
[2020-03-31] MEDS: CEROVITE ADV FORMULA TAB PO SCH (12:08)
[2020-03-31] MEDS: ZINC SULFATE 220 MG CAPSULE PO SCH (12:08)
--- NOTE | 2020-03-31 16:17 | Hospitalist Progress Note ---
Date of Service March 31, 2020 Assessment & Plan (1) COVID-19: Improvement in GI and respiratory symptoms, now only requiring minimal oxygen and reporting ambulation without respiratory distress. Hope to wean from oxygen overnight and potentially get her home tomorrow. Completed doxycycline a nd hydroxychloroquine courses. Cont Zinc (2) HTN (hypertension): cont amlodipine which was started this admission. BP is at goal. Low sodium diet. Recommend close PCP follow-up. (3) NSVT (nonsustained ventricular tachycardia): Cont Lopressor started this admission. (4) Obesity: (5) DVT prophylaxis: Lovenox Full Code Dispo-likely to home in 1-2 days. Luana Abel DO [place] Hospitalist Admission and Anticipated Discharge Date Admission Date: March 22, 2020 Subjective 59 yo F feels improved reports resolution of diarrhea which was severe in previous days reports an improvement in shortness of breath reports an angst regarding being in the hospital denies chest pain and feels better with respect to her breathing. supplemental oxygen need has declined and she reports ambulating without repsiratory issues. Review of Systems Review of Systems: All systems reviewed & are unremarkable except as noted in Subjective Physical Exam Physical Exam: CONSTITUTIONAL: obese, vitals as above, generally well- appearing EYES: pupils are round and equal bilaterally, normal conjunctivae, no scleral icterus ENT: external ear and nose normal NECK: trachea midline RESPIRATORY: crackles on right base, otherwise clear. No wheezing or rales present. Normal respiratory effort CARDIOVASCULAR: regular rate and rhythm, S1 and 2 heard without murmurs, gallops or rubs, no JVD, no peripheral edema GASTROINTESTINAL: soft, nontender, protuberant but not distended MUSCULOSKELETAL: strength 5/5 throughout, head is normocephalic and atraumatic SKIN: warm and dry NEUROLOGIC: CN 2-12 grossly intact, no sensory deficit, normal cognition, normal speech, no gross focal deficits. PSYCHIATRIC: alert cooperative and oriented to person, place and time. Results & Data Results & Data ([facility]) Vital Signs (Past 12 Hours) Vital Signs Temp Pulse Pulse Resp BP Pulse Ox 03/31/20 15:33 36.7 C 66 20 133/80 94 03/31/20 15:21 80 03/31/20 12:13 36.5 C 80 18 133/86 92 03/31/20 08:39 36.6 C 91 H 18 140/85 94 03/31/20 08:15 59 L 03/31/20 05:18 36.9 C 71 18 158/64 H 91 Medications Administered Current Inpatient Medications Acetaminophen (Tylenol) 650 mg PO Q4H PRN PRN Reason: Pain or Fever Stop: 04/22/20 01:50 Last Admin: 03/29/20 06:26 Dose: 650 mg Documented by: Amlodipine Besylate (Norvasc) 10 mg PO QAM@0800 [facility] Stop: 04/24/20 07:59 Last Admin: 03/31/20 08:34 Dose: 10 mg Documented by: Ascorbic Acid (Vitamin C) 500 mg PO BID@0800,2000 [facility] Stop: 04/24/20 00:00 Last Admin: 03/31/20 08:35 Dose: 500 mg Documented by: Enoxaparin Sodium (Lovenox) 40 mg SQ QAM@0800 [facility] Stop: 04/23/20 07:59 Last Admin: 03/31/20 07:55 Dose: 40 mg Documented by: Guaifenesin (Mucinex) 600 mg PO Q12H [facility] Stop: 04/22/20 19:59 Last Admin: 03/31/20 07:56 Dose: 600 mg Documented by: Hydralazine HCl (Hydralazine Hcl) 10 mg IV Q6H PRN PRN Reason: hypertension Stop: 04/22/20 17:14 Last Admin: 03/26/20 17:26 Dose: 10 mg Documented by: Promethazine HCl 12.5 mg/ (Sodium Chloride) 50.5 mls @ 202 mls/hr IV Q6H PRN PRN Reason: Nausea And Vomiting Stop: 04/22/20 01:50 Last Infusion: 03/24/20 12:10 Dose: Infused Documented by: Ipratropium [place] (Atrovent 0.02% 0.5mg/2.5ml) 0.5 mg INH Q6R PRN PRN Reason: Shortness Of Breath Or Wheezing Stop: 04/22/20 06:59 Lactobacillus Acidophilus (Floranex Granules/Powder Packet) 1 gm PO TIDM [facility] Stop: 04/24/20 11:59 Last Admin: 03/31/20 12:09 Dose: 1 gm Documented by: Levalbuterol HCl (Xopenex 1.25mg/0.5ml Neb) 1.25 mg INH Q6R PRN PRN Reason: Shortness Of Breath Or Wheezing Stop: 04/22/20 06:59 Loperamide HCl (Imodium) 2 mg PO Q8H PRN PRN Reason: Diarrhea Stop: 04/24/20 18:38 Last Admin: 03/27/20 12:16 Dose: 2 mg Documented by: Metoprolol Tartrate (Lopressor) 12.5 mg PO BID@0800,1999 [facility] Stop: 04/25/20 11:59 Last Admin: 03/31/20 08:34 Dose: 12.5 mg Documented by: Multivitamins/Minerals (Multivitamin W/ Minerals Tab) 1 tab PO Q24H [facility] Stop: 04/24/20 11:59 Last Admin: 03/31/20 12:08 Dose: 1 tab Documented by: Tramadol HCl (Ultram) 25 mg PO Q4H PRN PRN Reason: Pain Stop: 04/22/20 01:50 Last Admin: 03/24/20 05:42 Dose: 25 mg Documented by: Vitamin D (Vitamin D3) 5,000 units PO DAILY@0800 [facility] Stop: 04/26/20 07:59 Last Admin: 03/31/20 08:35 Dose: 5,000 units Documented by: Zinc Sulfate (Zinc Sulfate) 220 mg PO DAILY@1200 [facility] Stop: 04/24/20 00:00 Last Admin: 03/31/20 12:08 Dose: 220 mg Documented by:
[2020-04-01] MEDS: CHOLECALCIFEROL 1,000 UNITS 25 MCG TAB PO SCH (07:57)
[2020-04-01] MEDS: LACTOBACILLUS ACIDOPHILUS 1 GM PACK PO SCH ×2 (07:58→12:04)
[2020-04-01] MEDS: ASCORBIC ACID 500 MG TAB PO SCH (07:58)
[2020-04-01] MEDS: AMLODIPINE BESYLATE 5 MG TAB PO SCH (07:58)
[2020-04-01] MEDS: ENOXAPARIN INJ 40 MG/0.4 ML SYR SQ SCH (07:58)
[2020-04-01] MEDS: guaiFENesin 600 MG TABCR PO SCH (07:58)
[2020-04-01] MEDS: METOPROLOL TARTRATE 25 MG TAB PO SCH (07:58)
--- NOTE | 2020-04-01 10:31 | Discharge Summary ---
Date of Service April 01, 2020 Admission HPI Per Admitting Provider History obtained from patient, family, and records. No significant medical history. Patient has not been feeling well since last week. Fever at home, dry cough, pleuritic chest pain with shortness of breath associated with generalized weakness/fatigue/body aches. No recent out-of-town travel. 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 At the ER, O2 sats noted to be 80s on room air. Patient received Ceftriaxone for sepsis. Medical History as above Surgical History : Cholecystectomy, appendectomy Family History : Heart disease, diabetes, stroke Personal/Social history : Non-smoker, no EtOH intake, motel housekeeping employee Admission Exam Per Admitting Provider GENERAL: Comfortable, pleasant, minimal respiratory distress, obese SKIN: Normal color, warm HEENT: Martell palpebral conjunctivae, no ptosis, dry buccal mucosa, nasal cannula in place NECK : Supple, short neck, no tenderness CHEST : Decreased breath sounds, occasional expiratory wheeze, no tenderness HEART : RRR, no obvious murmurs ABDOMEN: Some distention, nontender EXTREMITIES : Minimal LE swelling, no LE tenderness, no other conspicuous deformities noted NEUROLOGIC : Coherent, no facial asymmetry, no other gross focality Principal Diagnosis COVID-19 infection NSVT HTN Discharge Exam CONSTITUTIONAL: obese, vitals as above, generally well-appearing EYES: pupils are round and equal bilaterally, normal conjunctivae, no scleral icterus ENT: external ear and nose normal NECK: trachea midline RESPIRATORY: CTAB. No wheezing or rales present. Normal respiratory effort CARDIOVASCULAR: regular rate and rhythm, S1 and 2 heard without murmurs, gallops or rubs, no JVD, no peripheral edema GASTROINTESTINAL: soft, nontender, protuberant but not distended MUSCULOSKELETAL: strength 5/5 throughout, head is normocephalic and atraumatic SKIN: warm and dry NEUROLOGIC: CN 2-12 grossly intact, no sensory deficit, normal cognition, norm al speech, no gross focal deficits. PSYCHIATRIC: alert cooperative and oriented to person, place and time. Discharge Data Allergies Allergy/AdvReac Type Severity Reaction Status Date / Time No Known Drug Allergies Allergy Unknown Verified 03/22/20 20:37 Consultations 03/22/20 22:08 ED Decision to Admit Stat 03/23/20 10:59 Consult Infectious Diseases Routine 03/23/20 11:04 Consult Pulmonology Routine Ordered Studies 03/22/20 23:40 CT angio chest PE protocol Urgent Hospital Course (1) COVID-19: (2) HTN (hypertension): (3) NSVT (nonsustained ventricular tachycardia): (4) Obesity: 59-year-old female presented with dry cough pleuritic chest pain with shortness of breath associated with generalized weakness fatigue and body aches. She was found to be positive for COVID-19. She was admitted to the hospitalist service and placed on ceftriaxone for sepsis. Pulmonology was consulted and noted bilateral lower lobe infiltrates on a CT chest consistent with COVID-19 infection. She was lymphopenic and required oxygen supplementation initially during her hospitalization. Hydroxychloroquine was given as a treatment for COVID-19. Infectious disease was consulted and added azithromycin for potential atypical coverage. Blood pressure was elevated and she was started on amlodipine which was titrated up to 10 mg daily. Consideration was given to an JULIA inhibitor, however, in the setting of COVID-19 this was not recommended by pulmonology. She began having diarrhea on 03/24 and stool C. difficile assays were ordered and negative. Lopressor was added in the setting of nonsustained V. tach seen on telemetry and subsequently resolved. Doxycycline was added to her regimen and Rocephin was discontinued. On March 28 a chest x-ray revealed pulmonary congestion and Lasix was given with good result. Symptoms continued to improve and she remained afebrile. Diarrhea resolved and she was continued on probiotics. Blood pressure remained at goal on therapy. At time of discharge she was not requiring oxygen and oxygenating well on room air at rest and with ambulation. O2 T 2-Step test by respiratory confirmed that she did not require oxygen supplementation. At time of discharge she was hemodynamically stable and had been afebrile for greater than 3 days. As a result she was discharged in stable condition and advised that she would not have to home quarantine. Household contacts would need to quarantine for 14 days since last being with her. She verbalized understanding with intent to comply. Regarding return to work, this was deferred to primary care provider at time of follow-up. She was continued on amlodipine 10 mg daily for hypertension and Lopressor 12.5mg twice daily for nonsustained ventricular tachycardia noted on telemetry. Total Time Total Time Spent Total Time Spent (In Minutes): 60 Total Time Includes: Examination of the Patient, Discharge Planning, Medication Reconciliation and Communication With Other Providers Discharge Plan Discharge Items Patient Disposition: Home - Self-Care Reason For Visit: SEPSIS Discharge Diagnosis: COVID-19 infection NSVT HTN Condition on Discharge: Good Activity: Resume your previous activity Non-emergency contact: Primary Care Provider Call non-emergency contact if: you have any medication questions, your symptoms worsen, your pain is not controlled, your pain is worsening, your pain is unusual for you, your pain is concerning for you and you have a fever Follow-up/Referrals: PCP,SAMUEL [Primary Care Provider] - 04/08/20 8:00 am (04/08/2020 8:00 AM Janusz Hammond MD [facility] ) Diet: Low Sodium (2gm) Addtl Attending Provider Instructions: Please take all medications as instructed on discharge list below. It is recommended that you follow-up with your primary care provider within one week of hospital discharge to ensure you are still doing well after going home. Also, a blood pressure check after starting the amlodipine medication will be needed. Additional vitals signs parameters and monitoring your response to the other new medication, Metoprolol, will also be needed at this time. 04/08/2020 8:00 AM Janusz Hammond MD [facility] You are cleared from quarantine at this time per CDC guidelines. Regarding return to work clearance, please follow-up with primary care physician at the date/time above. Current CDC guidance for isolation removal: At least 3 days (72 hours) have passed since recovery defined as resolution of fever without the use of fever-reducing medications and improvement in respiratory symptoms (e.g., cough, shortness of breath); and, At least 10 days have passed since symptoms first appeared It was a pleasure taking care of you! Please call if you have any questions or problems. You can reach a [facility] hospitalist on duty at [facility] 24 hours a day by calling [phone]. Take care of yourself. Luana Abel, [facility] Hospitalist Pending Studies at Discharge: No Stand-Alone Forms: My [facility] [place] [employer], Smoking Cessation Medications and DC Order Prescriptions: New metoprolol tartrate 25 mg Tablet 12.5 mg PO BID@0800,1999 Qty: 30 RF: 1 amlodipine 10 mg tablet 10 mg PO DAILY Qty: 30 RF: 1 Discharge Orders: Discharge Order (Routine); Ordered 04/01/20 Ordered By: Luana Ryan/Other Patient Handouts: Prediabetes, Diabetes Meal Planning, A1C Admission Data Admit Date/Time: 03/22/20 23:43 Attending Provider: Luana Abel Admit Provider: Td Wyatt Primary Care Provider: PCP,NO Other Providers: Td Wyatt ; Barbi Foley ; Rosalina Munoz Other Interventions: Discharge Summary Assessment (RN) Last Done: 04/01/20 13:08 DC Date/Time DO NOT enter until pt leaves facility: 04/01/20 13:45
[2020-04-01] MEDS: CEROVITE ADV FORMULA TAB PO SCH (12:04)
[2020-04-01] MEDS: ZINC SULFATE 220 MG CAPSULE PO SCH (12:04)
== END 2020-04-01 13:45 | disposition home or self-care (01) | DRG 871 ==
LOC: ED 19:31 → SUATTDRO 23:43 → 2W 23:43 → 2E 03-23 12:00